=== PATIENT | female | born 1950 | race Two or more races ===

== ENCOUNTER → 2024-09-16 | Outpatient (CLI) | payer MEDICARE, SELFPAY ==
[2024-09-16 10:17] LABS: Basophils # (Auto) 0.1 Thou/mm3 (0.0-0.2); Basophils % (Auto) 1 % (0-2.5); Eosinophils # (Auto) 0.1 Thou/mm3 (0.0-0.5); Eosinophils % (Auto) 1 % (0-10); Hematocrit 42.4 % (36.0-46.0); Hemoglobin 14.1 g/dL (12.0-16.0); Immature Granulocytes % (Auto) 0 % (0-0); Immature Granulocytes Auto 0.03 Thou/mm3 (0.00-0.00); Lymphocytes # (Auto) 2.3 Thou/mm3 (1.0-4.8); Lymphocytes % (Auto) 29 % (10-50); Mean Corpuscular HGB Conc 33.3 g/dl (31.0-37.0); Mean Corpuscular Hemoglobin 30.9 pg (25.0-35.0); Mean Corpuscular Volume 93 fL (80-100); Monocytes # (Auto) 0.5 Thou/mm3 (0.0-0.8); Monocytes % (Auto) 7 % (0-12); Neutrophils # (Auto) 4.9 Thou/mm3 (1.8-7.7); Neutrophils % (Auto) 62 % (37-80); Nucleated Red Blood Cell % 0 /100 WBC (0); Platelet Count 287 Thou/mm3 (140-440); RDW Standard Deviation 43.4 fL (36.4-46.3); Red Blood Count 4.56 Miln/mm3 (4.00-5.20)
[2024-09-16 10:44] LABS: Creatinine MALB Rnd Ur 97 mg/dL (30-125); Microalbumin, Random Urine < 3 mg/L (0-300)
[2024-09-16 10:44] LABS: Alanine Aminotransferase 10 U/L (10-49); Albumin, Serum 4.3 gm/dL (3.4-4.8); Albumin/Globulin Ratio 1.7 (1.2-2.2); Alkaline Phosphatase 99 U/L (46-116); Anion Gap 9 (7-16); Aspartate Amino Transferase 18 U/L (0-34); BUN/Creatinine Ratio 22 Ratio (12-20); Bilirubin,Total 0.4 mg/dL (0.3-1.2); Blood Urea Nitrogen 20 mg/dL (9-23); Carbon Dioxide 27.3 mMol/L (20.0-31.0); Cardiac Risk Estimate 4.1 RATIO (3.7-5.6); Chloride 108 mMol/L (98-107); Cholesterol 162 mg/dL (132-200); Creatinine (Component) 0.9 mg/dL (0.6-1.3); Globulin 2.5 gm/dL (2.3-3.5); Glucose 146 mg/dL (74-106); HDL Cholesterol 40 mg/dL (40-60); LDL Cholesterol,Calculated 88 mg/dL (0-130); Osmolality,Calculated 292 (275-295); Potassium 5.1 mMol/L (3.4-5.1); Sodium 144 mMol/L (136-145); Thyroid Stimulating Hormone 1.85 uIU/mL (0.55-4.78); Total Protein 6.8 gm/dL (5.7-8.2); Triglycerides 172 mg/dL (30-150); eGFR > 60 See Note
[2024-09-16 10:47] LABS: Glucose Estimated Average 131 mg/dL (80-131); Hemoglobin A1C 6.2 % Hgb (4.8-6.0)
== END | disposition home or self-care (01) ==
LOC: COPL 09:13
PROVIDERS: PCP Family Medicine; Referring Provider Family Medicine; Visit Provider Family Medicine
DX: E11.9 Type 2 diabetes mellitus without complications (principal)
CPT/HCPCS: 36415; 80053; 80061; 82043; 82570; 83036; 84443; 85025

== ENCOUNTER 2024-11-23 14:17 | Emergency (ER) | payer MEDICARE, SELFPAY ==
[2024-11-23 14:23] VITALS: PULSE 100; O2SAT 96
--- NOTE | 2024-11-23 14:23 | PC.NURSE ---
Patient to ER via ems with c/o Sudden onsent SOB, costa. eys blurred vision, and Headache. Patient in ambulance bay and Dr. Alexis called to bedside to evaluate patient, patient currently has no deficits, strong costa. 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 Alert and oriented x 4.
[2024-11-23 14:25] VITALS: BP 124/74; PULSE 90; RESP 19; TEMP 36.8; O2SAT 97; BMI 37.8
--- NOTE | 2024-11-23 14:26 | PD.EDHA ---
ED Headache RME/HPI General Chief Complaint: Shortness of Breath/Dyspnea Stated Complaint: SOB Time Seen by Provider: 11/23/24 14:26 Arrival date/time: 11/23/24 14:17 Limitations: no limitations RME / HPI RME / HPI Narrative: DR. RAMACHANDRAN MAIN ED EVALUATION: 73 year old female with past medical history significant for cluster migraines and hypertension presents to the Emergency Department [facility] with complaint of a headache prior to arrival. Associated symptoms include vision changes, I saw shadows instead of faces . Vision changes and headache have resolved. Now she is complaining of mid chest pain and paresthesias of her bilateral hands. Patient is very anxious. Related Data Home Medications ?Medication ?Instructions ?Recorded ?Confirmed losartan 50 mg tablet 50 mg PO QDAY 06/03/21 04/03/24 Previous Rx's ?Medication ?Instructions ?Recorded pantoprazole 40 mg tablet,delayed 40 mg PO QDAY #14 tabs 12/04/23 release (Protonix) aspirin 81 mg capsule 81 mg PO QDAY #30 caps 04/03/24 cyclobenzaprine 5 mg tablet 5 mg PO TID PRN muscle spasm #30 05/10/24 tabs cyclobenzaprine 5 mg tablet 5 mg PO TID PRN muscle spasm #30 05/10/24 tabs Allergies Allergy/AdvReac Type Severity Reaction Status Date / Time adhesive tape Allergy Intermediate RASH Verified 05/10/24 03:12 shellfish derived Allergy Intermediate Hives Verified 05/10/24 03:12 Iodinated Contrast Media Allergy Hives Verified 05/10/24 03:12 (Iodinated Contrast- Oral and IV Dye) codeine AdvReac Mild STOMACH Verified 05/10/24 03:12 UPSET Review of Systems Review of Systems Systems Reviewed: All systems reviewed, normal except as documented Past Medical History Past Medical History NEUROLOGIC: Positive Neurological Disorders and Migraine CARDIAC: Positive Cardiac Disorders, Myocardial Infarction and Hypertension GASTROINTESTINAL: Positive Gastrointestinal Bleed and Irritable Bowel MUSCULOSKELETAL: Positive Arthritis, Osteoporosis, Carpal Tunnel Syndrome and Fibromyalgia ENDOCRINE: Positive Diabetes Mellitus Type 2 PSYCHO/SOCIAL: Positive Depression and Anxiety OTHER HISTORY: Positive Anesthesia Reactions Family History FAMILY HISTORY: Positive Family Cardiac Disorders and Family Cancer Social History SMOKING STATUS: Never smoker SUBSTANCE USE: does not use ALCOHOL: Never ED Exam General Limitations: Present no limitations General appearance: Present alert, in no apparent distress and anxious Head Head exam: Present atraumatic, normocephalic and normal inspection Eye Eye exam: Present normal appearance, PERRL and EOMI ENT ENT exam: Present normal exam, normal oropharynx and mucous membranes moist Neck Neck exam: Present normal inspection, full ROM and trachea midline Chest Chest inspection: Present normal inspection and symmetric chest wall rise Respiratory Respiratory exam: Present normal lung sounds bilaterally Cardiovascular Cardiovascular exam: Present regular rate, normal rhythm and normal heart sounds Abdominal Exam Abdominal exam: Present soft and normal bowel sounds Extremities Exam Extremities exam: Present normal inspection and full ROM Back Exam Back exam: Present normal inspection and full ROM Neurological Exam Neurological exam: Present alert, oriented X3 and CN II-XII intact Psychiatric Psychiatric exam: Present normal affect and normal mood Skin Skin exam: Present warm, dry, intact and normal color Course Quality Measures none Orders Category Date Time Status EKG (ED ONLY) *Do not use* NOW Care 11/23/24 14:32 Completed CXRP [XR chest 1V portable] Stat Exams 11/23/24 15:23 Completed EKG (ED Only) Stat Exams 11/23/24 14:32 Draft B-Type Natriuretic Peptide Stat Lab 11/23/24 14:55 Completed CBC Stat Lab 11/23/24 14:55 Completed Comprehensive Metabolic Panel Stat Lab 11/23/24 14:55 Completed Magnesium Stat Lab 11/23/24 14:55 Completed Partial Thromboplastin Time Stat Lab 11/23/24 14:55 Completed Prothrombin Time with INR Stat Lab 11/23/24 14:55 Completed Troponin I Stat Lab 11/23/24 14:55 Completed Urinalysis Stat Lab 11/23/24 14:32 Ordered Acetaminophen Ivpb [Ofirmev Inj] Med 11/23/24 15:35 Discontinued 1,000 mg in 100 ml IV X1 LORazepam [Ativan Inj] Med 11/23/24 14:33 Discontinued 0.5 mg IVP X1 ONE Ondansetron Inj [Zofran Inj] Med 11/23/24 16:16 Discontinued 4 mg IV X1 ONE Sodium Chloride 0.9% 500 ml [Ns] 500 ml Med 11/23/24 14:35 Discontinued IV 999 mls/hr Reevaluation(s) Reevaluation #1: Patient is having a right-sided headache with right visual changes and photophobia. Will order IV Tylenol. Time: 15:36 Reevaluation #2: Patient remains clinically stable throughout the emergency department visit. Re-assessment at the time of disposition demonstrates that the patient is in no acute distress. We reviewed all the results, analysis, and treatment plans. Patient is amenable to discharge. Strict return precautions were outlined. Patient was discharged in stable condition. Time: 17:20 Vital Signs Vital signs: Vital Signs Temperature 98.2 F 11/23/24 14:25 Pulse Rate 90 11/23/24 14:25 Respiratory Rate 19 11/23/24 14:25 Blood Pressure 124/74 11/23/24 14:25 Pulse Oximetry (%) 97 11/23/24 14:25 Oxygen Delivery Method Room Air 11/23/24 14:25 Headache MDM Narrative MDM Narrative:: IAndria am scribing for and in the presence of Dr. Ramachandran. Patient data External records reviewed:: EMS form Clinical information provided by:: patient and EMS Social determinants that could affect healthcare access:: none Patient has the following chronic illnesses:: Cluster migraines and hypertension How is presenting disease/condition affected by chronic disease/condition?: caused by Evaluation data The following diagnostics were reviewed and interpreted by me:: lab results and EKG tracing(s) Lab and/or radiology exams considered but not ordered:: none Interpretation Summary: EKG#1: EKG at 1445 hours. Interpreted by me: sinus rhythm with frequent supraventricular premature complexes, rate 92, MO interval 175 ms, QRS duration 81 ms, QT/QTc 380/470, P-R-T axis 90, 39, and 19 RADIOLOGY Procedure(s): XR chest 1V portable Accession Number(s): [id number] cc: Mj Ramachandran MD; Jamil Holland MD~ Examination: AP chest single view Technique one AP portable upright chest single view Exam date and time: November 23, 2024 1610 hours Comparison April 01, 2024 INDICATIONS: Chest pain shortness of breath today. FINDINGS: Mild prominence cardiac contour Mild vascular congestion. Accentuation basilar bronchovascular markings. No lobar pneumonia or pulmonary edema IMPRESSION: Mild vascular congestion Mild basilar bronchitis pattern Dictated By: Jamil Holland MD Medications / Prescriptions Medications or Prescriptions considered but not ordered:: none Medication administrations:: Medication Administration History Discontinued Medications Sodium Chloride (Ns) 500 mls @ 999 mls/hr IV .Q31M ONE Stop: 11/23/24 15:05 Last Infusion: 11/23/24 16:20 Dose: Infused Documented By: Admin: 11/23/24 15:15 Dose: 999 mls/hr Documented By: SUSIE Acetaminophen (Ofirmev Inj) 1,000 mg in 100 mls @ 250 mls/hr IV X1 ONE Stop: 11/23/24 15:58 Lorazepam (Lorazepam 2 Mg/Ml Vial) 0.5 mg IVP X1 ONE Stop: 11/23/24 14:34 Last Admin: 11/23/24 15:15 Dose: 0.5 mg Documented By: SUSIE Ondansetron HCl (Ondansetron Inj 2 Mg/Ml Inj 2 Ml) 4 mg IV X1 ONE; Protocol Stop: 11/23/24 16:17 see above Consultations Consultation(s) initiated? (list below): No Diagnosis Differential diagnosis headache: migraine, tension headache and headache Most likely diagnosis given after review of the tests above:: Mild vascular congestion Bronchitis Hyperglycemia Hypertension fully controlled Admission Indicated Admission indicated?: not indicated Admission Request Was there a request for admission?: No Disposition Plan Disposition Plan: Discharge Discharge Attestation Discharge Attestation: The patient and all family members were given an opportunity to ask questions and understood the discharge instructions. Discharge instructions specifically effects, indications for sooner follow up or return to the emergency department, and the expected course of current diagnosis. Patient condition: Stable Discharge Plan Plan Patient Disposition: HOME (Self Care) Patient condition on transfer: Stable Prescriptions/Referrals Prescriptions/Med Rec: No Action losartan 50 mg Tablet 50 mg PO QDAY Rx Instructions: losartan with potassium pantoprazole [Protonix] 40 mg tablet,delayed release (DR/EC) 40 mg PO QDAY Qty: 14 0RF aspirin 81 mg capsule 81 mg PO QDAY Qty: 30 0RF cyclobenzaprine 5 mg tablet 5 mg PO TID PRN (Reason: muscle spasm) Qty: 30 0RF cyclobenzaprine 5 mg tablet 5 mg PO TID PRN (Reason: muscle spasm) Qty: 30 0RF Referrals: No Primary/Family,Physician [Primary Care Provider] - In 1 week Problem List Clinical Impression: Pulmonary vascular congestion, Hypertension, Bronchitis, Hyperglycemia Patient/Caregiver Discharge Instructions Additional Instructions: Please follow-up with your primary care physician within a week. Return to the Emergency Department as needed. Print Language: Citizen Of [place] Stand Alone Forms: Stephanie Award Info., Patient Portal Info Letter
--- NOTE | 2024-11-23 14:32 | EKG_ITS ---
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
[2024-11-23] MEDS: SODIUM CHLORIDE 0.9% 500 ML 500 ML 999 ML IV (15:15)
[2024-11-23] MEDS: LORazepam 2 MG/ML VIAL 0.5 MG IVP (15:15)
[2024-11-23 15:20] LABS: Basophils # (Auto) 0.1 Thou/mm3 (0.0-0.2); Basophils % (Auto) 1 % (0-2.5); Eosinophils # (Auto) 0.1 Thou/mm3 (0.0-0.5); Eosinophils % (Auto) 1 % (0-10); Hematocrit 40.2 % (36.0-46.0); Hemoglobin 13.3 g/dL (12.0-16.0); Immature Granulocytes % (Auto) 0 % (0-0); Immature Granulocytes Auto 0.04 Thou/mm3 (0.00-0.00); Lymphocytes # (Auto) 2.1 Thou/mm3 (1.0-4.8); Lymphocytes % (Auto) 21 % (10-50); Mean Corpuscular HGB Conc 33.1 g/dl (31.0-37.0); Mean Corpuscular Hemoglobin 30.4 pg (25.0-35.0); Mean Corpuscular Volume 92 fL (80-100); Monocytes # (Auto) 0.5 Thou/mm3 (0.0-0.8); Monocytes % (Auto) 5 % (0-12); Neutrophils # (Auto) 6.9 Thou/mm3 (1.8-7.7); Neutrophils % (Auto) 71 % (37-80); Nucleated Red Blood Cell % 0 /100 WBC (0); Platelet Count 272 Thou/mm3 (140-440); RDW Standard Deviation 44.4 fL (36.4-46.3); Red Blood Count 4.37 Miln/mm3 (4.00-5.20); White Blood Count 9.7 Thou/mm3 (3.6-11.0)
--- NOTE | 2024-11-23 15:23 | XR_ITS ---
Examination: AP chest single view Technique one AP portable upright chest single view Exam date and time: November 23, 2024 1610 hours Comparison April 01, 2024 INDICATIONS: Chest pain shortness of breath today. FINDINGS: Mild prominence cardiac contour Mild vascular congestion. Accentuation basilar bronchovascular markings. No lobar pneumonia or pulmonary edema IMPRESSION: Mild vascular congestion Mild basilar bronchitis pattern
[2024-11-23 15:36] LABS: B-Type Natriuretic Peptide 37 pg/mL (0-100)
[2024-11-23 15:37] LABS: Partial Thromboplastin Time 25.1 Seconds (22.0-36.0); Prothrombin Time 10.9 Seconds (9.0-12.2)
[2024-11-23 15:40] LABS: Alanine Aminotransferase 11 U/L (10-49); Albumin, Serum 4.1 gm/dL (3.4-4.8); Albumin/Globulin Ratio 1.4 (1.2-2.2); Alkaline Phosphatase 104 U/L (46-116); Anion Gap 7 (7-16); Aspartate Amino Transferase 15 U/L (0-34); BUN/Creatinine Ratio 23 Ratio (12-20); Bilirubin,Total 0.4 mg/dL (0.3-1.2); Blood Urea Nitrogen 23 mg/dL (9-23); Calcium 8.9 mg/dL (8.3-10.6); Calcium (Corrected) 8.9 mg/dL (8.5-10.1); Carbon Dioxide 24.9 mMol/L (20.0-31.0); Chloride 109 mMol/L (98-107); Estimated Creatinine Clearance 51.4 mL/min (>60); Globulin 2.9 gm/dL (2.3-3.5); Glucose 261 mg/dL (74-106); Magnesium 1.6 mg/dL (1.6-2.6); Osmolality,Calculated 293 (275-295); Potassium 3.4 mMol/L (3.4-5.1); Sodium 141 mMol/L (136-145); Troponin I < 0.020 ng/mL (0.0-0.045); eGFR 59 See Note
[2024-11-23 17:14] VITALS: BP 148/77; PULSE 85; RESP 22; TEMP 37.1; O2SAT 95
[2024-11-23] MEDS: ONDANSETRON INJ 2 MG/ML INJ 2 ML 4 MG IV (17:23)
[2024-11-23] MEDS: ACETAMINOPHEN IVPB 1,000 MG/100 ML VIAL 250 MG IV (17:24)
[2024-11-23 17:30] VITALS: BP 129/75; PULSE 84; RESP 18; TEMP 36.9; O2SAT 95
== END 2024-11-23 18:15 | disposition home or self-care (01) ==
PROVIDERS: Emergency Provider Family Medicine
DX: J40 Bronchitis, not specified as acute or chronic (principal); R09.89 Other specified symptoms and signs involving the circulatory and respiratory systems; I10 Essential (primary) hypertension; E11.65 Type 2 diabetes mellitus with hyperglycemia; I49.1 Atrial premature depolarization
CPT/HCPCS: 36415; 71045; 80053; 81001; 83735; 83880; 84484; 85025; 85610; 85730; 93005; 96361; 96365; 96375; 99284; J0131; J2060; J2405; J7040

== ENCOUNTER 2025-01-29 18:13 | Emergency (ER) | payer MEDICARE, SELFPAY ==
[2025-01-29 18:23] VITALS: BP 139/102; PULSE 126; RESP 18; TEMP 36.7; O2SAT 98
[2025-01-29 18:26] VITALS: PULSE 165; RESP 20; O2SAT 96; BMI 40.0
--- NOTE | 2025-01-29 18:34 | EDNOTE_ITS ---
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 Patient describes pain as a tightness. She also reports numbness, pins and needles to her LUE. Patient was in the shower when symptoms began. She stepped out and tried to calm down, but received a phone call from a teacher learning disabled causing her to become upset and exacerbated her symptoms again. She takes Eliquis, Metformin, Aspirin, and a blood pressure medication. Patient also reports approximately 6 months ago she was told she had a stroke, but after evaluation by a neurologist, she was asked to stop her medications and told that she never had a stroke. Patient denies nausea, vomiting, diarrhea or any other associated symptoms or aggravating factors. No modifying factors, no radiation, no migration. No pain reported overall. Related Data Home Medications ?Medication ?Instructions ?Recorded ?Confirmed apixaban 5 mg tablet (Eliquis) 5 mg PO BID 01/29/25 metformin 1,000 mg tablet 100 mg PO BID 01/29/2501/29 Previous Rx's ?Medication ?Instructions ?Recorded aspirin 81 mg capsule 81 mg PO QDAY #30 caps 04/03 Allergies Allergy/AdvReac Type Severity Reaction Status Date / Time adhesive tape Allergy Intermediate RASH Verified 05/10/24 03:12 shellfish derived Allergy Intermediate Hives Verified 05/10/24 03:12 Iodinated Contrast Media Allergy Hives Verified 05/10/24 03:12 (Iodinated Contrast- Oral and IV Dye) codeine AdvReac Mild STOMACH Verified 05/10/24 03:12 UPSET Review of Systems Review of Systems Systems Reviewed: All systems reviewed, normal except as documented Past Medical History Past Medical History NEUROLOGIC: Positive Neurological Disorders and Migraine CARDIAC: Positive Cardiac Disorders, Myocardial Infarction, Atrial Fibrillation and Hypertension GASTROINTESTINAL: Positive Gastrointestinal Bleed and Irritable Bowel MUSCULOSKELETAL: Positive Arthritis, Osteoporosis, Carpal Tunnel Syndrome and Fibromyalgia ENDOCRINE: Positive Diabetes Mellitus Type 2 PSYCHO/SOCIAL: Positive Depression and Anxiety OTHER HISTORY: Positive Anesthesia Reactions Family History FAMILY HISTORY: Positive Family Cardiac Disorders and Family Cancer ED Exam Narrative Physical exam: GENERAL APPEARANCE: alert and oriented x 4, well-developed, well-nourished, no acute distress VITALS: All vitals were reviewed and the pulse ox is 98% on room air, which is normal according to my interpretation. HEENT: Normocephalic, atraumatic; pupils equal, round, reactive to light; EOMI; mucous membranes pink, moist; oropharynx clear NECK: Supple LUNGS: CTABL; no wheezes, no rales, no rhonchi HEART: Regular rate, regular rhythm; normal S1, S2; no murmurs ABDOMEN: non distended; normal BS; soft, no tenderness, no guarding, no rebound; no masses, no organomegaly, no hernia BACK: no CVA tenderness EXTREMITIES: atraumatic; no edema NEUROLOGIC: awake; alert and oriented x4; cranial nerves II-XII grossly intact; no focal sensory or motor deficits PSYCHIATRIC: appropriate mood and affect SKIN: warm, dry, normal color; no rashes Course Course Course Narrative: CXR is ordered for determining the etiology of shortness of breath. Quality Measures none Orders Category Date Time Status Sr. Vendor Management Associate NOW Care 01/29/25 18:34 Active EKG (ED ONLY) *Do not use* NOW Care 01/29/25 18:34 Completed EKG (ED Only) Stat Exams 01/29/25 18:34 Draft XR chest 1V portable Stat Exams 01/29/25 18:34 Completed B-Type Natriuretic Peptide Stat Lab 01/29/25 18:36 Completed CBC Stat Lab 01/29/25 18:36 Completed Comprehensive Metabolic Panel Stat Lab 01/29/25 18:36 Completed Lipase Stat Lab 01/29/25 18:36 Completed Magnesium Stat Lab 01/29/25 18:36 Completed Partial Thromboplastin Time Stat Lab 01/29/25 18:36 Completed Prothrombin Time with INR Stat Lab 01/29/25 18:36 Completed Troponin I Stat Lab 01/29/25 18:36 Completed Troponin I Stat Lab 01/29/25 21:40 Completed Aspirin Chew Med 01/29/25 18:33 Discontinued 162 mg PO X1 ONE Labetalol IV [Trandate IV] Med 01/29/25 18:39 Discontinued 10 mg IVP X1 ONE Magnesium Sulfate 2 GM Ivpb [Magnesium Sulfate Ivpb] Med 01/29/25 20:45 Discontinued 2 gm in 50 ml IV X1 Vital Signs Vital signs: Vital Signs Temperature 98.1 F 01/29/25 18:23 Pulse Rate 126 H 01/29/25 18:23 Respiratory Rate 18 01/29/25 18:23 Blood Pressure 139/102 H 01/29/25 18:23 Pulse Oximetry (%) 98 01/29/25 18:23 Oxygen Delivery Method Room Air 01/29/25 18:23 Chest Pain MDM Narrative MDM Narrative:: Scribe Attestation: I, Dannielle Zamudio, am scribing for and in the presence of Dr. Sapp. Provider Notation: Although this document has been carefully reviewed, there may still be some phonetic and other typographical errors.? These errors are purely grammatical due to imperfections in the software program and should not be construed in any way to? compromise the substance of the patient's medical care during this visit. Patient data External records reviewed:: [facility] previous records (Reviewed prior ED records from 11/23/24. Patient was seen for Bronchitis.) and EMS form Clinical information provided by:: patient and EMS Social determinants that could affect healthcare access:: none Patient has the following chronic illnesses:: Migraine, Myocardial Infarction, Atrial Fibrillation, Hypertension, Gastrointestinal Bleed, Irritable Bowel, Arthritis, Osteoporosis, Carpal Tunnel Syndrome, Fibromyalgia, Diabetes Mellitus Type 2, Depression and Anxiety How is presenting disease/condition affected by chronic disease/condition?: exacerbated by Evaluation data The following diagnostics were reviewed and interpreted by me:: lab results, radiology exam(s) and EKG tracing(s) (1936: EKG manual reading, my interpretation: Atrial Fibrillation, rate: 103 bpm, moderate artifact, no acute ischemic changes.) Lab and/or radiology exams considered but not ordered:: None Interpretation Summary: RADIOLOGY Chest X-Ray: Patient: PETAR SAAVEDRA [facility]. Record#: [id number] Birthdate: 1950 Age/Sex: 74 / F Location: [facility] Attending Dr: Ordering Physician: Jemma Sapp MD Date of Service: 01/29/25 Procedure(s): XR chest 1V portable Accession Number(s): [id number] cc: Jamil Holland MD; NO PRIMARY/FAMILY,PHYSICIAN; Jemma Sapp MD~ Examination: AP chest single view Technique: AP portable semiupright chest single view Date and time: January 29, 2025 1902 hours Comparison November 23, 2024 INDICATIONS: Chest pain shortness of breath beginning 2 days ago. FINDINGS: Mild prominence cardiac contour Opacity obscuring detail of the right cardiac contour No pulmonary edema. Significant osteopenia IMPRESSION: Suspicious for pneumonia in the right middle lobe Dictated By: Jamil Holland MD Signed By: <Electronically signed by Jamil Holland MD in OV> 01/29/25 1920 Medications / Prescriptions Medications or Prescriptions considered but not ordered:: None Medication administrations:: Medication Administration History Discontinued Medications Aspirin (Aspirin 81 Mg Chew) 162 mg PO X1 ONE Stop: 01/29/25 18:34 Last Admin: 01/29/25 20:01 Dose: 162 mg Documented By: EE Magnesium Sulfate (Magnesium Sulfate Ivpb) 2 gm in 50 mls @ 25 mls/hr IV X1 ONE Stop: 01/29/25 22:44 Last Admin: 01/29/25 21:11 Dose: 25 mls/hr Documented By: EE Labetalol HCl (Labetalol Inj 5 Mg/Ml Vial 20 Ml) 10 mg IVP X1 ONE Stop: 01/29/25 18:40 Last Admin: 01/29/25 19:55 Dose: Not Given Documented By: EE Non-Admin Reason: Cancelled by Provider See above Consultations Consultation(s) initiated? (list below): No Diagnosis Chest Pain Differential Diagnosis: stable angina, unstable angina pectoris, atypical chest pain, st elevation myocardial infarction, costochondritis, chest pain and biliary colic Most likely diagnosis given after review of the tests above:: Atrial fibrillation, chest pain, dyspnea Admission Indicated Admission indicated?: not indicated Explain why admission is indicated or not indicated:: Patient did not meet admission criteria. Admission Request Was there a request for admission?: No Disposition Plan Disposition Plan: Discharge Discharge Attestation Discharge Attestation: The patient and all family members were given an opportunity to ask questions and understood the discharge instructions. Discharge instructions specifically effects, indications for sooner follow up or return to the emergency department, and the expected course of current diagnosis. Patient condition: Stable Discharge Plan Plan Patient Disposition: HOME (Self Care) Prescriptions/Referrals Prescriptions/Med Rec: No Action aspirin 81 mg capsule 81 mg PO QDAY Qty: 30 0RF Eliquis 5 mg tablet 5 mg PO BID metformin 1,000 mg tablet 100 mg PO BID Patient Comments: TAKE 1 TABLET BY MOUTH TWICE A DAY WITH MORNING AND EVENING MEALS Referrals: No Primary/Family,Physician [Primary Care Provider] - In 1 week Problem List Clinical Impression: Atrial fibrillation, Dyspnea, Chest tightness Patient/Caregiver Discharge Instructions Education Materials: ED Atrial Fibrillation, ED Chest Pain, Uncertain Cause Print Language: Czech Stand Alone Forms: Stephanie Award Info., Patient Portal Info Letter
--- NOTE | 2025-01-29 18:34 | EKG_ITS ---
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
--- NOTE | 2025-01-29 18:35 | PC.NURSE ---
PATIENT ARRIVED EMS SECONDARY TO INCREASE IN SOB AND CHEST PAIN, PATIENT STATES SHE WAS TAKING A SHOWER EARLIER AND FELT SOB AND GOT OUT OF THE SHOWER AND RESTED WITH RELIEF. PATIENT STATES SHE GOT UPSET WITH SOME FAMILY ISSUES AND HAD CHEST PAIN WITH SOB AND STATES SHE FELT HER HEART RACING. UPON ARRIVAL PATIENT WITH CHEST PAIN 2/10 ON PAIN SCALE, STATES THAT SHE NOW HAS A HEADACHE 7/10. PATIENT ABLE TO ANSWER APPROPRIATE QUESTIONS AND STATES SHE FEELS BETTER ONCE PLACED IN ROOM. PATIENT ON MONITOR, BLOOD DRAWN FROM EXISTING IV AND SENT TO LAB. DR. MADRID AT BEDSIDE. CALL LIGHT AND PLAN OF CARE UNDERSTOOD BY PATIENT.
[2025-01-29 18:47] VITALS: PULSE 126
[2025-01-29 18:48] LABS: Basophils # (Auto) 0.1 Thou/mm3 (0.0-0.2); Basophils % (Auto) 1 % (0-2.5); Eosinophils # (Auto) 0.1 Thou/mm3 (0.0-0.5); Eosinophils % (Auto) 1 % (0-10); Hematocrit 43.1 % (36.0-46.0); Hemoglobin 14.6 g/dL (12.0-16.0); Immature Granulocytes % (Auto) 0 % (0-0); Immature Granulocytes Auto 0.03 Thou/mm3 (0.00-0.00); Lymphocytes # (Auto) 2.5 Thou/mm3 (1.0-4.8); Lymphocytes % (Auto) 25 % (10-50); Mean Corpuscular HGB Conc 33.9 g/dl (31.0-37.0); Mean Corpuscular Hemoglobin 30.9 pg (25.0-35.0); Mean Corpuscular Volume 91 fL (80-100); Monocytes # (Auto) 0.7 Thou/mm3 (0.0-0.8); Monocytes % (Auto) 7 % (0-12); Neutrophils # (Auto) 6.6 Thou/mm3 (1.8-7.7); Neutrophils % (Auto) 67 % (37-80); Nucleated Red Blood Cell % 0 /100 WBC (0); Platelet Count 264 Thou/mm3 (140-440); RDW Standard Deviation 43.5 fL (36.4-46.3); Red Blood Count 4.72 Miln/mm3 (4.00-5.20)
[2025-01-29 19:02] LABS: Partial Thromboplastin Time 27.4 Seconds (22.0-36.0)
[2025-01-29 19:07] LABS: Alanine Aminotransferase 14 U/L (10-49); Albumin, Serum 4.4 gm/dL (3.4-4.8); Albumin/Globulin Ratio 1.6 (1.2-2.2); Alkaline Phosphatase 105 U/L (46-116); Anion Gap 8 (7-16); Aspartate Amino Transferase 15 U/L (0-34); BUN/Creatinine Ratio 15 Ratio (12-20); Bilirubin,Total 0.3 mg/dL (0.3-1.2); Blood Urea Nitrogen 20 mg/dL (9-23); Calcium 9.2 mg/dL (8.3-10.6); Calcium (Corrected) 9.2 mg/dL (8.5-10.1); Carbon Dioxide 23.2 mMol/L (20.0-31.0); Chloride 112 mMol/L (98-107); Creatinine (Component) 1.3 mg/dL (0.6-1.3); Estimated Creatinine Clearance 40.2 mL/min (>60); Globulin 2.7 gm/dL (2.3-3.5); Glucose 110 mg/dL (74-106); Lipase 37 U/L (12-53); Magnesium 1.5 mg/dL (1.6-2.6); Osmolality,Calculated 288 (275-295); Sodium 143 mMol/L (136-145); Total Protein 7.1 gm/dL (5.7-8.2); Troponin I < 0.020 ng/mL (0.0-0.045); eGFR 43 See Note
[2025-01-29 19:08] LABS: B-Type Natriuretic Peptide 178 pg/mL (0-100)
[2025-01-29 19:54] VITALS: BP 132/90; PULSE 103; RESP 18; O2SAT 97
[2025-01-29] MEDS: ASPIRIN 81 MG CHEW 162 MG PO (20:01)
[2025-01-29 21:08] VITALS: BP 118/81; PULSE 95; RESP 18; TEMP 36.9; O2SAT 97
[2025-01-29] MEDS: Magnesium Sulfate 2 GM Ivpb 2 GM/50 ML BAG IV (21:11)
[2025-01-29 22:13] LABS: Troponin I < 0.020 ng/mL (0.0-0.045)
[2025-01-30 00:24] VITALS: BP 116/76; PULSE 72; RESP 16; TEMP 36.8; O2SAT 95
== END 2025-01-30 00:26 | disposition home or self-care (01) ==
PROVIDERS: Emergency Provider Emergency Medicine
DX: I48.91 Unspecified atrial fibrillation (principal); R94.31 Abnormal electrocardiogram [ECG] [EKG]; I25.2 Old myocardial infarction; I10 Essential (primary) hypertension; F41.9 Anxiety disorder, unspecified; R20.0 Anesthesia of skin
CPT/HCPCS: 36415; 71045; 80053; 83690; 83735; 83880; 84484; 85025; 85610; 85730; 93005; 96365; 96366; 99284; J3475; A9270

== ENCOUNTER 2025-04-13 15:49 | Observation (INO) | payer MEDICARE, SELFPAY ==
--- NOTE | 2025-04-13 16:18 | EKG_ITS ---
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
[2025-04-13 16:23] VITALS: BP 125/90; PULSE 93; RESP 18; TEMP 36.6; O2SAT 96
--- NOTE | 2025-04-13 16:37 | XR_ITS ---
Examination: AP chest single view Technique: Upright AP chest single view Date and time: April 13, 2025, 1721 hrs. Indications: Shortness of breath headache beginning 3 weeks ago. Findings: Mild enlargement cardiac contour. Probable fat pad left cardiophrenic angles No lobar pneumonia or pulmonary edema Impression: No lobar pneumonia or pulmonary edema.
--- NOTE | 2025-04-13 16:37 | XR_ITS ---
Examination: CT brain head without contrast. 2-D sagittal coronal reconstructions Date and time of exam:April 13, 2025 at 1705 hrs. Indications: Headache dizziness beginning 3 weeks ago. CTDI: vol (mGy):54.5. DLP: (mGycm):1 Technique: Multiple CT axial sections of the brain have been obtained, 5 mm slice thickness. Contrast has not been administered. 2-D sagittal, coronal reconstructions have been obtained Low dose protocols were performed. One or more of the following dose reduction techniques were used; automated exposure control, adjustment of the mA and/or KV according to patient size, use of iterative reconstruction technique. Findings: No significant ventricular enlargement. Low density in the right occipital lobe which appears to be old but clinical correlation Intra-axial or extra-axial hemorrhage density is not seen. No mass effect or midline shift Basal cisterns are not remarkable. Fourth ventricle is midline. Cranial vault intact. Impression: Negative for acute hemorrhage, mass effect or midline shift advised Low density in the right occipital lobe which appears to be old but clinical correlation advised Brain MRI MRA without contrast follow-up would best assess for and exclude acute infarction
--- NOTE | 2025-04-13 16:37 | PD.EDRME ---
Rapid Medical Screening Exam RME Arrival date/time: 04/13/25 15:49 74-year-old female presents to the emergency department today for concerns for chest pressure and headache and dizziness Chief Complaint: Shortness of Breath/Dyspnea Time Seen by Provider: 04/13/25 16:00 Vital signs: Vital Signs Temperature 98 F 04/13/25 16:23 Pulse Rate 93 04/13/25 16:23 Respiratory Rate 18 04/13/25 16:23 Blood Pressure 125/90 H 04/13/25 16:23 Pulse Oximetry (%) 96 04/13/25 16:23 Oxygen Delivery Method Room Air 04/13/25 16:23
[2025-04-13 17:26] LABS: Basophils # (Auto) 0.1 Thou/mm3 (0.0-0.2); Basophils % (Auto) 1 % (0-2.5); Eosinophils # (Auto) 0.1 Thou/mm3 (0.0-0.5); Eosinophils % (Auto) 1 % (0-10); Hematocrit 44.2 % (36.0-46.0); Hemoglobin 14.3 g/dL (12.0-16.0); Immature Granulocytes Auto 0.03 Thou/mm3 (0.00-0.00); Lymphocytes # (Auto) 2.3 Thou/mm3 (1.0-4.8); Lymphocytes % (Auto) 25 % (10-50); Mean Corpuscular HGB Conc 32.4 g/dl (31.0-37.0); Mean Corpuscular Hemoglobin 30.0 pg (25.0-35.0); Mean Corpuscular Volume 93 fL (80-100); Monocytes # (Auto) 0.5 Thou/mm3 (0.0-0.8); Monocytes % (Auto) 6 % (0-12); Neutrophils # (Auto) 6.2 Thou/mm3 (1.8-7.7); Neutrophils % (Auto) 68 % (37-80); Nucleated Red Blood Cell # 0.00 Thou/mm3 (0.00-0.00); Nucleated Red Blood Cell % 0 /100 WBC (0); Platelet Count 252 Thou/mm3 (140-440); RDW Standard Deviation 42.9 fL (36.4-46.3); Red Blood Count 4.77 Miln/mm3 (4.00-5.20); White Blood Count 9.1 Thou/mm3 (3.6-11.0)
[2025-04-13 17:59] LABS: B-Type Natriuretic Peptide 135 pg/mL (0-100)
[2025-04-13 18:02] LABS: Alanine Aminotransferase 17 U/L (10-49); Albumin, Serum 4.2 gm/dL (3.4-4.8); Albumin/Globulin Ratio 1.6 (1.2-2.2); Alkaline Phosphatase 88 U/L (46-116); Anion Gap 9 (7-16); Aspartate Amino Transferase 21 U/L (0-34); BUN/Creatinine Ratio 14 Ratio (12-20); Bilirubin,Total 0.4 mg/dL (0.3-1.2); Blood Urea Nitrogen 13 mg/dL (9-23); Calcium 9.8 mg/dL (8.3-10.6); Calcium (Corrected) 9.8 mg/dL (8.5-10.1); Carbon Dioxide 26.1 mMol/L (20.0-31.0); Chloride 107 mMol/L (98-107); Creatinine (Component) 0.9 mg/dL (0.6-1.3); Free T4 (Free Thyroxine) 1.27 ng/dL (0.89-1.76); Globulin 2.6 gm/dL (2.3-3.5); Glucose 113 mg/dL (74-106); Magnesium 2.1 mg/dL (1.6-2.6); Osmolality,Calculated 284 (275-295); Potassium 4.4 mMol/L (3.4-5.1); Sodium 142 mMol/L (136-145); Thyroid Stimulating Hormone 1.04 uIU/mL (0.55-4.78); Total Protein 6.8 gm/dL (5.7-8.2); Troponin I < 0.002 ng/mL (0.0-0.045); eGFR > 60 See Note
[2025-04-13 18:23] LABS: INR 1.1 (0.9-1.3); Partial Thromboplastin Time 27.3 Seconds (22.0-36.0); Prothrombin Time 11.6 Seconds (9.0-12.2)
--- NOTE | 2025-04-13 19:01 | EDNOTE_ITS ---
ED SOB =RME/HPI General Chief Complaint: Shortness of Breath/Dyspnea Stated Complaint: DIFF BREATHING, MAHMOOD, R) ARM NUMB, BACK PAIN, DIZZY Time Seen by Provider: 04/13/25 16:00 Arrival date/time: 04/13/25 15:49 RME / HPI RME / HPI Narrative: 04/13/25 15:49 74-year-old female presents to the emergency department today for concerns for chest pressure and headache and dizziness --------- See MDM for Dr. Castaneda's HPI documentation. Related Data Home Medications ?Medication ?Instructions ?Recorded ?Confirmed apixaban 5 mg tablet (Eliquis) 5 mg PO BID 01/29/25 metformin 1,000 mg tablet 100 mg PO BID 01/29/2501/29 Previous Rx's ?Medication ?Instructions ?Recorded aspirin 81 mg capsule 81 mg PO QDAY #30 caps 04/03 Allergies Allergy/AdvReac Type Severity Reaction Status Date / Time adhesive tape Allergy Intermediate RASH Verified 04/13/25 15:54 shellfish derived Allergy Intermediate Hives Verified 04/13/25 15:54 Iodinated Contrast Media Allergy Hives Verified 04/13/25 15:54 (Iodinated Contrast- Oral and IV Dye) codeine AdvReac Mild STOMACH Verified 04/13/25 15:54 UPSET Review of Systems Review of Systems Systems Reviewed: All systems reviewed, normal except as documented Past Medical History Past Medical History NEUROLOGIC: Positive Neurological Disorders and Migraine; Negative Seizures CARDIAC: Positive Cardiac Disorders, Myocardial Infarction, Atrial Fibrillation and Hypertension; Negative Congestive Heart Failure RESPIRATORY: Negative Chronic Obstructive Pulmonary Disease (COPD) or Asthma GASTROINTESTINAL: Positive Gastrointestinal Bleed and Irritable Bowel; Negative Colorectal Cancer GENITOURINARY: Negative Genitourinary Disorders or Renal Disease REPRODUCTIVE: Negative Breast Cancer MUSCULOSKELETAL: Positive Arthritis, Osteoporosis, Carpal Tunnel Syndrome and Fibromyalgia ENDOCRINE: Positive Diabetes Mellitus Type 2; Negative Diabetes Mellitus Type 1 HEMATOLOGIC: Negative Blood Disorders or Sickle Cell Disease PSYCHO/SOCIAL: Positive Depression and Anxiety OTHER HISTORY: Positive Anesthesia Reactions; Negative Blood Transfusions, Blood Transfusion Reaction, Cancer, Breast Cancer, Cervical Cancer, Colorectal Cancer, Lung Cancer or Ovarian Cancer Family History FAMILY HISTORY: Positive Family Cardiac Disorders and Family Cancer Social History SMOKING STATUS: Never smoker SUBSTANCE USE: does not use ED Exam Narrative Physical exam: See MDM for Dr. Castaneda's physical exam documentation. Course Course Course Narrative: CXR is ordered for determining the etiology of shortness of breath. Quality Measures none Orders Category Date Time Status Bedside Blood Glucose ACHS Care 04/13/25 20:57 Active Bedside COVID-19 Antigen Test NOW Care 04/13/25 19:36 Active Bedside Influenza A&B Antigen Test NOW Care 04/13/25 19:36 Active COVID-19 Screening Questionnaire NOW Care 04/13/25 20:09 Active Devops Consultant NOW Care 04/13/25 16:34 Active Decision to Admit X1 Care 04/13/25 20:09 Active EKG (ED ONLY) *Do not use* NOW Care 04/13/25 16:18 Completed Saline [Insert IV] NOW Care 04/13/25 20:10 Active Consult to Cardiology Stat Cons 04/13/25 20:06 Ordered CA echo transesophageal Stat Exams 04/13/25 20:[address] head/brain wo con Stat Exams 04/13/25 16:37 Completed EKG (ED Only) Stat Exams 04/13/25 16:18 Draft XR chest 1V portable Stat Exams 04/13/25 16:37 Completed B-Type Natriuretic Peptide Stat Lab 04/13/25 17:01 Completed CBC Stat Lab 04/13/25 17:01 Completed Comprehensive Metabolic Panel Stat Lab 04/13/25 17:01 Completed D-Dimer Stat Lab 04/13/25 17:01 Completed Free T4 (Free Thyroxine) Stat Lab 04/13/25 17:01 Completed Magnesium Stat Lab 04/13/25 17:01 Completed Partial Thromboplastin Time Stat Lab 04/13/25 17:01 Completed Prothrombin Time with INR Stat Lab 04/13/25 17:01 Completed TSH [Thyroid Stimulating Hormone] Stat Lab 04/13/25 17:01 Completed Troponin I Stat Lab 04/13/25 17:01 Completed Urinalysis, C/S if Indicated Stat Lab 04/13/25 19:23 Completed Urine Culture Stat Lab 04/13/25 19:23 Received ALPRazoLAM [Xanax] Med 04/13/25 19:36 Discontinued 0.5 mg PO X1 ONE Apixaban [Eliquis] Med 04/14/25 09:00 Active 5 mg PO BID Apixaban [Eliquis] Med 04/13/25 20:55 Discontinued 5 mg PO X1 ONE Aspirin Chew Med 04/14/25 09:00 Active 81 mg PO QDAY Dextrose 50% Syr [D50w Syringe Abboject] Med 04/13/25 20:57 Active 25 ml IV Q15MIN PRN Dextrose 50% Syr [D50w Syringe Abboject] Med 04/13/25 20:57 Active 50 ml IV Q15MIN PRN Glucagon Inj Med 04/13/25 20:57 Active 1 mg IM Q15MIN PRN INSULIN LISPRO (AdmeLOG) [HumaLOG] Med 04/13/25 21:00 Active See Protocol SC ACHS Lidocaine 5% Patch Med 04/13/25 20:58 Active 1 patch TOP UD PRN Metoprolol Succinate Xl [Toprol Xl] Med 04/14/25 09:00 Active 100 mg PO QAM Metoprolol Succinate Xl [Toprol Xl] Med 04/13/25 21:00 Active 50 mg PO HS Sodium Chloride 0.9% 250 ml [Ns] 250 ml Med 04/13/25 20:10 Discontinued IV 500 mls/hr cefTRIAXone/D5w 1gm IV premix [Rocephin/D5w 1gm IV Med 04/13/25 21:00 Active premix] 1 gm in 50 ml IV QDAY cefTRIAXone/D5w 1gm IV premix [Rocephin/D5w 1gm IV Med 04/13/25 20:10 Discontinued premix] 1 gm in 50 ml IV X1 EKG (RT) Routine RT 04/14/25 07:00 Ordered Vital Signs Vital signs: Vital Signs Temperature 98 F 04/13/25 16:23 Pulse Rate 93 04/13/25 16:23 Respiratory Rate 18 04/13/25 16:23 Blood Pressure 125/90 H 04/13/25 16:23 Pulse Oximetry (%) 96 04/13/25 16:23 Oxygen Delivery Method Room Air 04/13/25 16:23 Shortness of Breath / Dyspnea MDM Narrative MDM Narrative:: This section includes all my notes and documentations, including HPI, PE, and ED course. Madi Castaneda MD HPI: 74yo female here with recurrent episodes of palpitation and shortness of breath for months. No syncope or near syncope. No chest pain. No other complaints. ROS: All negative except as documented in HPI. Physical Exam: General: Alert and oriented. Appears anxious. Eyes: Conjunctivae and lids clear. PERRL. EOMI. ENT: No nasal congestion. Neck: Supple. No carotid bruit. No JVD. Heart: Irregularly irregular (84 bpm). Lungs: No respiratory distress. Good air movement. No severe rhonchi, wheezing, rales. Abdomen: Soft and nontender. Back: No CVA tenderness. Skin: Warm and dry. Neuro: Alert and oriented X 3. Cranial nerves II to XII grossly normal. No peripheral motor deficits. I reviewed all diagnostic test results. My interpretation of the EKG is atrial fibrillation (84 bpm). My interpretation of the chest x-ray is NAD. My review of the CT head report is NAD. Blood tests are unremarkable. UA showed positive nitrite, positive leukocyte esterase, 26 WBC, and 4+ b acteria. At this point, diagnoses include: Atrial fibrillation with RVR UTI (urinary tract infection) Treatment here included: IV fluid Rocephin Patient declined Xanax. I discussed the case with patient's global category manager, Dr. King About the presentation and exam and diagnostics and treatments here. Recommended admission for cardioversion. I discussed the case with our hospitalist. About the presentation and exam and diagnostics and treatments here. And need of further care in the hospital. Will accept the patient. Madi Castaneda MD Patient data External records reviewed:: [facility] previous records (Per chart review, patient was seen here on 01/29/25 for aFib.) Clinical information provided by:: guardian Social determinants that could affect healthcare access:: none Patient has the following chronic illnesses:: aFib, HTN, DM How is presenting disease/condition affected by chronic disease/condition?: uneffected by Evaluation data The following diagnostics were reviewed and interpreted by me:: lab results, radiology exam(s) and EKG tracing(s) Lab and/or radiology exams considered but not ordered:: none Interpretation Summary: I reviewed all diagnostic test results. My interpretation of the EKG is atrial fibrillation (84 bpm). My interpretation of the chest x-ray is NAD. My review of the CT head report is NAD. Blood tests are unremarkable. UA showed positive nitrite, positive leukocyte esterase, 26 WBC, and 4+ bacteria. Medications / Prescriptions Medications or Prescriptions considered but not ordered:: none Medication administrations:: Medication Administration History Acetaminophen (Acetaminophen 325 Mg Tablet) 650 mg PO Q6H PRN PRN Reason: PAIN SCALE 1-3 (mild Stop: 05/13/25 21:00 Acetaminophen (Acetaminophen 325 Mg Tablet) 650 mg PO Q6H PRN PRN Reason: Fever >100.4 Stop: 05/13/25 21:00 Hydrocodone Bitart/Acetaminophen (Hydrocodone/Apap 10/325 Tab) 1 tab PO Q4HR PRN PRN Reason: PAIN SCALE 7-10 (Severe Stop: 04/18/25 21:00 Apixaban (Apixaban 2.5 Mg Tablet) 5 mg PO BID [facility] Stop: 05/14/25 08:59 Aspirin (Aspirin 81 Mg Chew) 81 mg PO QDAY [facility] Stop: 05/14/25 08:59 Dextrose (Dextrose 50%-Water Inj 50 Ml Syringe) 25 ml IV Q15MIN PRN PRN Reason: BG 50-70 responsive npo pt Stop: 05/13/25 20:56 Dextrose (Dextrose 50%-Water Inj 50 Ml Syringe) 50 ml IV Q15MIN PRN PRN Reason: BG <50 OR BG <70 & pt unresponsive Stop: 05/13/25 20:56 Glucagon (Glucagon Inj 1 Mg Vial) 1 mg IM Q15MIN PRN PRN Reason: BG <70, and no IV access Ceftriaxone Sodium/Dextrose (Rocephin/D5w 1gm Iv Premix) 1 gm in 50 mls @ 100 mls/hr IV QDAY [facility] Stop: 04/20/25 20:59 Last Admin: 04/13/25 21:30 Dose: Not Given Documented By: VELASQUEZ Non-Admin Reason: See IV Spreadsheet Insulin Human Lispro (Insulin Lispro (Admelog) 1 Unit/0.01 Ml Unit) 0 unit SC [facility]; Protocol Stop: 05/13/25 20:59 Last Admin: 04/13/25 21:55 Dose: Not Given Documented By: VELASQUEZ Non-Admin Reason: Per Protocol Lidocaine (Lidocaine 5% 1 Patch) 1 patch TOP UD PRN PRN Reason: PAIN Stop: 05/13/25 20:57 Metoprolol Succinate (Metoprolol Succinate Xl 25 Mg Tabcr) 50 mg PO [facility] Stop: 05/13/25 20:59 Last Admin: 04/13/25 21:42 Dose: 50 mg Documented By: SF Metoprolol Succinate (Metoprolol Succinate Xl 25 Mg Tabcr) 100 mg PO QAM [facility] Stop: 05/14/25 08:59 Ondansetron HCl (Ondansetron Inj 2 Mg/Ml Inj 2 Ml) 4 mg IVP Q6H PRN; Protocol PRN Reason: NAUSEA OR VOMITING Stop: 05/13/25 21:00 Oxycodone/Acetaminophen (Oxycodone/Apap 5/325 Tablet) 1 tab PO Q6H PRN PRN Reason: PAIN SCALE 4-6 (Moderate Stop: 04/18/25 21:00 Pantoprazole Sodium (Pantoprazole Inj 40 Mg Vial) 40 mg IVP QDAY [facility] Stop: 05/14/25 08:59 Discontinued Medications Alprazolam (Alprazolam 0.25 Mg Tablet) 0.5 mg PO X1 ONE Stop: 04/13/25 19:37 Last Admin: 04/13/25 20:07 Dose: Not Given Documented By: PAMELA Non-Admin Reason: Patient Refused Apixaban (Apixaban 2.5 Mg Tablet) 5 mg PO X1 ONE Stop: 04/13/25 20:56 Last Admin: 04/13/25 21:46 Dose: 5 mg Documented By: VELASQUEZ Ceftriaxone Sodium/Dextrose (Rocephin/D5w 1gm Iv Premix) 1 gm in 50 mls @ 100 mls/hr IV X1 ONE Stop: 04/13/25 20:39 Last Infusion: 04/14/25 00:07 Dose: Infused Documented By: Admin: 04/13/25 21:41 Dose: 100 mls/hr Documented By: VELASQUEZ Sodium Chloride (Ns) 250 mls @ 500 mls/hr IV .Q30M ONE Stop: 04/13/25 20:39 Last Infusion: 04/14/25 00:07 Dose: Infused Documented By: Admin: 04/13/25 21:46 Dose: 500 mls/hr Documented By: VELASQUEZ Treatment from me here included: IV fluid Rocephin Patient declined Xanax. Consultations Consultation(s) initiated? (list below): Yes Consultation #1 (Physician, Specialty, Details): I discussed the case with our global category manager, Dr. King About the presentation and exam and diagnostics and treatments here. Recommended admission to hospitalist service for cardioversion. Consultation #2 (Physician, Specialty, Details): I discussed the case with our hospitalist. About the presentation and exam and diagnostics and treatments here. And need of further care in the hospital. Will accept the patient. Diagnosis Shortness of Breath Differential Diagnosis: acute exacerbation of chronic obstructive airways disease, congestive heart failure, community acquired pneumonia, asthma with exacerbation, pulmonary embolism and other (Recurrent atrial fibrillation with RVR) Most likely diagnosis given after review of the tests above:: Atrial fibrillation with RVR, UTI (urinary tract infection) Admission Indicated Admission indicated?: indicated Explain why admission is indicated or not indicated:: Atrial fibrillation with RVR, UTI (urinary tract infection) Admission Request Was there a request for admission?: Yes Admission Attestation Admission request attestation: Discussed case with Hospitalist service regarding admission. Discussed patients ED course, exam findings, labs, and radiology results. Agreed to accept the patient for admission. Disposition Plan Disposition Plan: Admit Discharge Plan Plan Patient Disposition: Admit Acute Care w/in Hospital Problem List Clinical Impression: Atrial fibrillation with RVR, UTI (urinary tract infection)
[2025-04-13 19:26] LABS: Collection Type, Urine Clean Catch
[2025-04-13 19:52] LABS: Bacteria,Urine 4+; Bilirubin,Urine Negative (Negative); Blood,Urine 1+ (Negative); Clarity,Urine Turbid (Clear/Hazy); Color,Urine Lt-Yellow (Lt Yel-Yel); Glucose, Urine Negative (Negative); Ketones,Urine Negative (Negative); Leukocyte Esterase,Urine Positive (Negative); Nitrite,Urine Positive (Negative); PH,Urine 6.0 (5.0-7.0); Protein,Urine 1+ (Neg - Trace); RBC,Urine 1 /hpf (0-3); Specific Gravity,Urine 1.023 (1.001-1.035); Squamous Epithelial Cell,Urine 4 /hpf (0-5); Urobilinogen,Urine Negative mg/dL (0.0-1.0); WBC,Urine 26 /hpf (0-5)
[2025-04-13 19:53] LABS: Culture Indicated,Urine Yes
[2025-04-13 19:56] VITALS: BP 122/85; PULSE 92; RESP 16; TEMP 36.4; O2SAT 100
[2025-04-13 20:05] LABS: D-Dimer < 250 ng/mL (<600)
--- NOTE | 2025-04-13 20:57 | ECHO_ITS ---
Transesophageal Echo Report Ht (in): 61 Wt (lb): 205 Exam Location: Echo Lab Status: Emergency Ham Sawyer: Lina Dunham Indications: Procedure Performed: BP: 133 / 74 HR: 120 Medications Versed 4 mg Fentanyl 100 FINDINGS Left Ventricle Global left ventricular systolic function is severely decreased. Indeterminate LV diastolic function due to AFIB .The ejection fraction is visually estimated at 25-30%. Right Ventricle The right ventricular systolic function is mildly decreased. Left Atrium The left atrial cavity size is moderately increased. Right Atrium The right atrial cavity size is mildly increased. Atrial Appendages The left atrial appendage appears normal with no evidence for thrombus. Atrial Septum No patent foramen ovale demonstrated by agitated saline injection. Aorta The aorta is normal by two-dimensional, color flow and Doppler interrogation. Mitral Valve The mitral valve is normal by two-dimensional, color flow and Doppler interrogation. Mild mitral regurgitation. Tricuspid Valve The tricuspid valve is normal by two-dimensional, color flow and Doppler interrogation.there is trace tricuspid valve regurgitation. Pulmonic Valve The pulmonic valve is normal by two-dimensional, color flow and Doppler interrogation. There is no significant pulmonic valve regurgitation. Vessels The pulmonary artery appears normal. The inferior vena cava pulmonary and hepatic veins appear normal. Pericardium The pericardium is normal by two-dimensional imaging. There is no significant pericardial effusion. CONCLUSIONS Indication: Symptomatic AFib/ cardioversion Medication Versed 4 mg Fentanyl 100 mcg No LA/ ARIN thrombus. Bubble study negative for PFO or ASD LV systolic function is severely decreased. Indeterminate LV diastolic function due to A-fib. EF estimated at 30-35% Normal LV and RV size. The right ventricular systolic function is mildly decreased. Mild to moderate MR and Trace TR. Systolic blunting of pulmonary veins noted. No pericardial effusion. David King (Electronically Signed) Final Date: 14 April 2025 18:26
--- NOTE | 2025-04-13 21:06 | ESHP_ITS ---
<Statement entered by Arron Calero MD - 04/14/25 02:43> I have discussed and was present for the essential components of the history, physical examination, diagnosis, and treatment plan with the resident. I agree with the patient's care as documented by the resident and amended herein by me. Arron Calero MD FACP. Documentation for date of: 04/13/25 HPI History of Present Illness History of present illness: This is 74-year-old female with PMHx AFIB with recurrent RVR, HTN, T2DM, hiatal hernia, osteoporosis, arthritis, IBS, migraine MAHMOOD, and recent TIA presenting to the ED with headache and shortness of breath. Reports worsening shortness of breath over the last few days that appears to be triggered by racing sensation in the cehst. She has a history of AFIB with recurrent RVR. She usually noticed these episodes when her heart rate goes up. She become anxious and start feeling short of breath. These symptoms occur on average once a week, sometimes more often, last minutes long but vary in duration. She follows up with Dr. King and has seen him recently and found to have RVR. States this episode has lasted longer than usual. She has a history of migraine headaches that she takes OCT analgesis for. She has had worsening headache over the last few days, believes to be related to anxiety. Currently complains of feeling anxious and palpitations but sob appears to have resolved. Headache about 4/10, non-focal, more around the temporal region bilaterally. Also complains of chronic, persistent left posterior shoulder pain, which was present on exam, not associated with movement, reproducible on exam with palpitation. Denies fever, chills, fall or head trauma, focal neurological deficits, vision changes, hearing loss, speach abnormalities, focal weakness, chest pain, cough, abdominal pain, NVDC, GI bleed, dysurea or hematurea. He has chronic urinary frequency secondary to urinary incontinence. Past Medical History: * As above. Past Surgical History: * Cholecystectomy, hiatal hernia repair, carpal tunnel. Medications: * METOPROLOL XL 100 mg a.m. daily, METOPROLOL XL 50 mg HS, ELIQUIS 5 mg BID, ASPIRIN 81 mg daily, METFORMIN 1000 mg daily, magnesium and calcium supplements daily. Allergies: * Rash adhesive tape, hives to shellfish, hives to IODINE contrast, stomach upset from CODEINE. Family History: * Significant cardiac history in her father with open heart surgery x 2, brother had a heart attack at the age of 57, mother has chronic history of angina and A-fib. 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 * Denies alcohol, tobacco, or illicit drug use. ED Course: * Afebrile, BP 125/90, HR 93, satting 98% on room air. * CBC unremarkable. Coag panel within normal limits. * CHEM panel significant for GLUCOSE 113, BNP 135. * Normal renal function, normal liver function, normal troponin, normal thyroid function. * UA was turbid with 26 WBC, 4+ bacteria, 1+ blood, 1+ protein. * EKG showed A-fib, HR 89, no acute ST changes. * Head CT was negative for acute pathology. * CXR is negative for pneumonia or pulmonary edema. Transportation Security Screener, Dr. King, was consulted who recommended admission for cardioversion in the a.m., given that she is persistently symptomatic, and appears to have worsening symptoms. Reason for admission: Symptomatic A-fib with shortness of breath, palpitation, requiring cardioversion. UTI requiring IV ANTIBIOTICS. Exam Vital Signs Temp Pulse Resp BP Pulse Ox O2 Del Method 97.6 F 92 16 122/85 H 100 Room Air 04/13/25 19:56 04/13/25 19:56 04/13/25 19:56 04/13/25 19:56 04/13/25 19:56 04/13/25 19:56 Narrative Exam GENERAL * Normal appearing famale, appears in mild distress and anxious, on room air. HEENT * NCAT.?PAMELA. Oral mucosa is moist. Patent Nares NECK * Supple, nontender, no JVD. CHEST * Irregularly irregular rhythm, normal rate, no m/g/r * CTAB, no w/r/r, symmetrical expansion. ABDOMEN * Soft, flat, nontender. No guarding/rebound tenderness/masses. * Bowel sounds presents EXTREMITIES * No edema/cyanosis.? SKIN * Warm and dry, no jaundice/rashes. * Tenderness to palpation over left posterior shoulder. No pain or limitations of motion. NEUROMUSCULAR * No lumbar or midline, no CVA, no paraspinal muscle spasm or tenderness. * Moves all 4 extremities well, with full ROM and good CSM. * THORNTON x4, CN II-XII grossly intact. * No focal neurologic deficits. PSYCHIATRY * Normal mood and affect, cooperative, no SI or HI or hallucinations. Results: Labs 04/13/25 17:01 04/13/25 17:01 Labs: Short CBC 04/13/25 Range/Units 17:01 WBC 9.1 (3.6-11.0) Thou/mm3 Hgb 14.3 (12.0-16.0) g/dL Hct 44.2 (36.0-46.0) % Plt Count 252 (140-440) Thou/mm3 BMP 04/13/25 17:01 Sodium 142 Potassium 4.4 Chloride 107 Carbon Dioxide 26.1 BUN 13 Creatinine 0.9 Glucose 113 H Calcium 9.8 Cardiac Enzymes 04/13/25 Range/Units 17:01 Troponin I < 0.002 (0.0-0.045) ng/mL Liver Function 04/13/25 Range/Units 17:01 Total Bilirubin 0.4 (0.3-1.2) mg/dL AST 21 (0-34) U/L ALT 17 (10-49) U/L Alkaline Phosphatase 88 (46-116) U/L Albumin 4.2 (3.4-4.8) gm/dL Urine 04/13/25 Range/Units 19:23 Urine Color Lt-Yellow (Lt Yel-Yel) Urine Clarity Turbid A (Clear/Hazy) Urine pH 6.0 (5.0-7.0) Ur Specific [place] 1.023 (1.001-1.035) Urine Protein 1+ A (Neg - Trace) Urine Glucose (UA) Negative (Negative) Quality Measures Quality Measures none Advance care planning discussed with:: patient Medications Home Medications and Allergies Home Medications ?Medication ?Instructions ?Recorded ?Confirmed ?Type apixaban 5 mg tablet (Eliquis) 5 mg PO BID 01/29/25 History metformin 1,000 mg tablet 100 mg PO BID 01/29/2501/29 History Allergies Allergy/AdvReac Type Severity Reaction Status Date / Time adhesive tape Allergy Intermediate RASH Verified 04/13/25 15:54 shellfish derived Allergy Intermediate Hives Verified 04/13/25 15:54 Iodinated Contrast Media Allergy Hives Verified 04/13/25 15:54 (Iodinated Contrast- Oral and IV Dye) codeine AdvReac Mild STOMACH Verified 04/13/25 15:54 UPSET Visit Medications Acetaminophen (Acetaminophen 325 Mg Tablet) 650 mg PO Q6H PRN PRN Reason: PAIN SCALE 1-3 (mild Stop: 05/13/25 21:00 Acetaminophen (Acetaminophen 325 Mg Tablet) 650 mg PO Q6H PRN PRN Reason: Fever >100.4 Stop: 05/13/25 21:00 Hydrocodone Bitart/Acetaminophen (Hydrocodone/Apap 325 Tab) 1 tab PO Q4HR PRN PRN Reason: PAIN SCALE 7-10 (Severe Stop: 04/18/25 21:00 Apixaban (Apixaban 2.5 Mg Tablet) 5 mg PO BID [facility] Stop: 05/14/25 08:59 Aspirin (Aspirin 81 Mg Chew) 81 mg PO QDAY [facility] Stop: 05/14/25 08:59 Dextrose (Dextrose 50%-Water Inj 50 Ml Syringe) 25 ml IV Q15MIN PRN PRN Reason: BG 50-70 responsive npo pt Stop: 05/13/25 20:56 Dextrose (Dextrose 50%-Water Inj 50 Ml Syringe) 50 ml IV Q15MIN PRN PRN Reason: BG <50 OR BG <70 & pt unresponsive Stop: 05/13/25 20:56 Glucagon (Glucagon Inj 1 Mg Vial) 1 mg IM Q15MIN PRN PRN Reason: BG <70, and no IV access Ceftriaxone Sodium/Dextrose (Rocephin/D5w 1gm Iv Premix) 50 mls @ 100 mls/hr IV QDAY [facility] Stop: 04/20/25 20:59 Insulin Human Lispro (Insulin Lispro (Admelog) 1 Unit/0.01 Ml Unit) 0 unit SC [facility]; Protocol Stop: 05/13/25 20:59 Lidocaine (Lidocaine 5% 1 Patch) 1 patch TOP UD PRN PRN Reason: PAIN Stop: 05/13/25 20:57 Metoprolol Succinate (Metoprolol Succinate Xl 25 Mg Tabcr) 50 mg PO HS [facility] Stop: 05/13/25 20:59 Metoprolol Succinate (Metoprolol Succinate Xl 25 Mg Tabcr) 100 mg PO QAM [facility] Stop: 05/14/25 08:59 Ondansetron HCl (Ondansetron Inj 2 Mg/Ml Inj 2 Ml) 4 mg IVP Q6H PRN; Protocol PRN Reason: NAUSEA OR VOMITING Stop: 05/13/25 21:00 Oxycodone/Acetaminophen (Oxycodone/Apap 5/325 Tablet) 1 tab PO Q6H PRN PRN Reason: PAIN SCALE 4-6 (Moderate Stop: 04/18/25 21:00 Pantoprazole Sodium (Pantoprazole Inj 40 Mg Vial) 40 mg IVP QDAY [facility] Stop: 05/14/25 08:59 Discontinued Medications Alprazolam (Alprazolam 0.25 Mg Tablet) 0.5 mg PO X1 ONE Stop: 04/13/25 19:37 Last Admin: 04/13/25 20:07 Dose: Not Given Apixaban (Apixaban 2.5 Mg Tablet) 5 mg PO X1 ONE Stop: 04/13/25 20:56 Ceftriaxone Sodium/Dextrose (Rocephin/D5w 1gm Iv Premix) 1 gm in 50 mls @ 100 mls/hr IV X1 ONE Stop: 04/13/25 20:39 Sodium Chloride (Ns) 250 mls @ 500 mls/hr IV .Q30M ONE Stop: 04/13/25 20:39 Assessment & Plan Plan This is 74-year-old female with PMHx AFIB with recurrent RVR, HTN, T2DM, hiatal hernia, osteoporosis, arthritis, IBS, migraine MAHMOOD, and recent TIA presenting to the ED with headache and shortness of breath. Admitted for symptomatic AFIB requiring cardioeversion in AM. Symptomatic A-fib Hx A-fib, recurrent RVR Presents with sob, palpitations and anxiety. She has a history of afib with recurrent RVR and her symptoms appears to be related to AFIB. She is on rate control but remains symptomatic during these episode. Admission EKG showed AFIB rate controlled, no acute ST changes. Currently feels anxious but denies chest pain and satting well on room air. Troponin negative. BNP slightly elevated but no signs of CHF exacerbation on exam. Last ECHO from 2023 was normal with EEF 60-65. Dr. King was consulted and will perform cardioeversion in the AM. ? Continue ELIQUIS BID, give tomorrow's dose at 7AM prior to cardioeversion. ? Continue home ASPIRIN 81 mg daily ? Continue METOPROLOL XL 100 mg QDAY AM, and METOPROLOL XL 50 MG HS ? Oxygen PRN ? NPO midnight ? EKG in AM ? Maintain K>4.0 and Mag>2.0 Urinary tract infection, likely GNR Urinary incontinence She has a history of urinary incontinence and has increased urinary frequency recently, but no dysuria. UA suggested UTI. Last urine culture grew pansensitive E. coli. Currently afebrile, no leukocytosis. ? Started CEFTRIAXONE daily ? Pending urine culture Migraine headaches Hx TIA She has a history of migraine headaches, managed with OTC ANALGESICS. Currently complains of headache, but not worse than usual. She had a history of TIA recently without residual symptoms. Neuroexam WNL, no focal neurologic deficits. Head CT negative for acute pathology. ? Continue home ASPIRIN daily ? TYLENOL PRN HTN Admission BP within acceptable range. ? Continue METOPROLOL as above T2DM Most recent A1c 6.2 from 09/2024. GLUCOSE within acceptable range. ? INSULIN sliding scale ? Accu-Cheks Osteoporosis IBS Outpatient management. Health maintenance Diet: Cardiac, n.p.o. midnight GI prophylaxis: PROTONIX DVT prophylaxis: SCD Antibiotics: CEFTRIAXONE CODE STATUS: Full code Disposition: Admitted for symptomatic A-fib with RVR requiring cardioversion, UTI with IV ANTIBIOTICS. Case was discussed with attending physician. Evon Oakley DO PGY II This document was transcribed using voice recognition technology. Minor inaccuracies may be present.
[2025-04-13] MEDS: cefTRIAXone/D5w 1gm IV premix 1 GM/50 ML BAG IV (21:41)
[2025-04-13 21:42] VITALS: BP 147/96; PULSE 86
[2025-04-13] MEDS: METOPROLOL SUCCINATE XL 25 MG TABCR 50 MG PO (21:42)
[2025-04-13] MEDS: APIXABAN 2.5 MG TABLET 5 MG PO (21:46)
[2025-04-13] MEDS: SODIUM CHLORIDE 0.9% 250 ML 250 ML 500 ML IV (21:46)
--- NOTE | 2025-04-13 22:53 | PD.IMCONS ---
Documented by User: David King MD 04/14/25 10:16 HPI Data of Consult Requesting Physician: Arron Calero MD Primary Care Provider: Physician No Primary/Family Consult Narrative History of present illness: Patient is my clinic patient and has history of paroxysmal atrial fibrillation. Patient has been having RVR episodes intermittently and has been having worsening anxiety with the palpitations. She was being scheduled for an outpatient DARRIAN with cardioversion for atrial fibrillation and was started on Eliquis 5 mg twice daily for anticoagulation. Unfortunately patient has not been doing well and came to the emergency department today for further evaluation. Recommend to keep the patient n.p.o. overnight and will plan to do a DARRIAN with cardioversion in the morning. Recommend to continue to give Eliquis 5 mg tonight as well as tomorrow morning at 7 AM prior to the DARRIAN and cardioversion. Full note to follow cc:: cc: Arron Calero MD Meds Home Medications and Allergies Home Medications ?Medication ?Instructions ?Recorded ?Confirmed ?Type apixaban 5 mg tablet (Eliquis) 5 mg PO BID 01/29/25 01/29/25 History metformin 1,000 mg tablet 100 mg PO BID 01/29/25 01/29/25 History Allergies Allergy/AdvReac Type Severity Reaction Status Date / Time adhesive tape Allergy Intermediate RASH Verified 04/14/25 08:53 shellfish derived Allergy Intermediate Hives Verified 04/14/25 08:53 Iodinated Contrast Media Allergy Hives Verified 04/14/25 08:53 (Iodinated Contrast- Oral and IV Dye) codeine AdvReac Mild STOMACH Verified 04/14/25 08:53 UPSET Exam Vital Signs Temp Pulse Resp BP Pulse Ox O2 Del Method 97.6 F 86 16 147/96 H 100 Room Air 04/13/25 19:56 04/13/25 21:42 04/13/25 19:56 04/13/25 21:42 04/13/25 19:56 04/13/25 19:56 Results Labs 04/14/25 04:47 04/14/25 04:47 Labs: Short CBC 04/13/25 Range/Units 17:01 WBC 9.1 (3.6-11.0) Thou/mm3 Hgb 14.3 (12.0-16.0) g/dL Hct 44.2 (36.0-46.0) % Plt Count 252 (140-440) Thou/mm3 BMP 04/13/25 17:01 Sodium 142 Potassium 4.4 Chloride 107 Carbon Dioxide 26.1 BUN 13 Creatinine 0.9 Glucose 113 H Calcium 9.8 Cardiac Enzymes 04/13/25 Range/Units 17:01 Troponin I < 0.002 (0.0-0.045) ng/mL Liver Function 04/13/25 Range/Units 17:01 Total Bilirubin 0.4 (0.3-1.2) mg/dL AST 21 (0-34) U/L ALT 17 (10-49) U/L Alkaline Phosphatase 88 (46-116) U/L Albumin 4.2 (3.4-4.8) gm/dL Urine 04/13/25 Range/Units 19:23 Urine Color Lt-Yellow (Lt Yel-Yel) Urine Clarity Turbid A (Clear/Hazy) Urine pH 6.0 (5.0-7.0) Ur Specific [place] 1.023 (1.001-1.035) Urine Protein 1+ A (Neg - Trace) Urine Glucose (UA) Negative (Negative) Documented by User: Kristen Valles DO 04/14/25 17:05 HPI Consult Narrative Reason for consult: Afib RVR and CHF exacerbation History of present illness: Conception Camilo 74F pmhx significant for atrial fibrillation/flutter, [id number] type 2 diabetes, hypertension, osteoporosis with pathological fracture, IBS, osteoarthritis and history of TIA s/p tPA (03/2024) who presents to [facility] ED on 04/14 for worsening shortness of breath as well as palpitations. Patient was recently seen in Dr. Hernandez's clinic, for the following symptoms. Patient has been having A-fib RVR episode intermittently and has been having worse anxiety with the palpitations. Patient was recently being scheduled for outpatient DARRIAN with cardioversion for atrial fibrillation and was taking Eliquis 5 mg twice daily for anticoagulation. However unfortunately patient reports not feeling well, endorses severe headache as well as dizziness, shortness of breath, extreme fatigue and left arm tightness with left fingertip tingling for the past month, prompting ED visit. States that symptoms are worsening especially shortness of breath that she is unable to complete ADLs without feeling extremely fatigued. Endorses orthopnea (sleeping propped up on her couch), PND, chest pressure, leg swelling left greater than right and dyspnea on exertion. Also complains of worsening constant dizziness, worse with standing and walking but not on head movement for the past 3 months with associated nausea and bilateral tinnitus. Dizziness has been persistent for years however has been worsening acutely lately. Patient also states that she has urinary continence, leaking from time to time which started last June. PMHx: As above Surgical Hx: Cholecystectomy 1971, complete hysterectomy , breast reduction FHx: Father has angina, open heart surgery, passed from cardiac arrest. 4 siblings without known cardiac history. Son has hypertension and diabetes. Social Hx: Never smoker, denies alcohol intake as well as recreational/illicit drug use. Caffeine intake 3 cups of coffee a day. 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 Born in [place], lives with son. Allergies: NKDA Medications: Metformin HCl 1000 mg daily, Eliquis 5 mg twice daily, metoprolol XL 100 mg BID, magnesium oxide 400 mg daily, aspirin 81 mg daily, rosuvastatin 40 mg daily Cardiology consulted for cardioversion and DARRIAN and management of A-fib RVR. Review of Systems Review of Systems Systems Reviewed: All systems reviewed, normal except as documented Meds Home Medications and Allergies Home Medications ?Medication ?Instructions ?Recorded ?Confirmed ?Type apixaban 5 mg tablet (Eliquis) 5 mg PO BID 01/29/25 01/29/25 History metformin 1,000 mg tablet 100 mg PO BID 01/29/25 01/29/25 History Allergies Allergy/AdvReac Type Severity Reaction Status Date / Time adhesive tape Allergy Intermediate RASH Verified 04/14/25 08:53 shellfish derived Allergy Intermediate Hives Verified 04/14/25 08:53 Iodinated Contrast Media Allergy Hives Verified 04/14/25 08:53 (Iodinated Contrast- Oral and IV Dye) codeine AdvReac Mild STOMACH Verified 04/14/25 08:53 UPSET Exam Vital Signs Temp Pulse Resp BP Pulse Ox O2 Del Method 97.6 F 86 16 147/96 H 100 Room Air 04/13/25 19:56 04/13/25 21:42 04/13/25 19:56 04/13/25 21:42 04/13/25 19:56 04/13/25 19:56 Narrative Exam GENERAL: AOx3, no acute distress, anxious HEENT: NC/AT, mucous membranes moist, bilateral sclera anicteric CARDIOVASCULAR: regular rate and irregular rhythm, S1/S2 present, no murmurs appreciated PULMONARY: clear to auscultation bilaterally, no rales/rhonchi/wheezes ABDOMINAL: soft, non-tender, non-distended, no rebound/guarding, bowel sounds present EXTREMITIES: trace pitting edema at hips SKIN: warm and dry, intact, no rashes NEURO: CN II-XII grossly intact, no focal deficits, alert, following commands Results Labs 04/14/25 04:47 04/14/25 04:47 Labs: Short CBC 04/13/25 Range/Units 17:01 WBC 9.1 (3.6-11.0) Thou/mm3 Hgb 14.3 (12.0-16.0) g/dL Hct 44.2 (36.0-46.0) % Plt Count 252 (140-440) Thou/mm3 BMP 04/13/25 17:01 Sodium 142 Potassium 4.4 Chloride 107 Carbon Dioxide 26.1 BUN 13 Creatinine 0.9 Glucose 113 H Calcium 9.8 Cardiac Enzymes 04/13/25 Range/Units 17:01 Troponin I < 0.002 (0.0-0.045) ng/mL Liver Function 04/13/25 Range/Units 17:01 Total Bilirubin 0.4 (0.3-1.2) mg/dL AST 21 (0-34) U/L ALT 17 (10-49) U/L Alkaline Phosphatase 88 (46-116) U/L Albumin 4.2 (3.4-4.8) gm/dL Urine 04/13/25 Range/Units 19:23 Urine Color Lt-Yellow (Lt Yel-Yel) Urine Clarity Turbid A (Clear/Hazy) Urine pH 6.0 (5.0-7.0) Ur Specific [place] 1.023 (1.001-1.035) Urine Protein 1+ A (Neg - Trace) Urine Glucose (UA) Negative (Negative) Assessment and Plan Additional Assessment & Plan Additional Plan: Conception Ton 74F pmhx significant for atrial fibrillation/flutter, [id number] type 2 diabetes, hypertension, osteoporosis with pathological fracture, IBS, osteoarthritis and history of TIA s/p tPA (03/2024) who presents to [facility] ED on 04/14 for HFrEF exacerbation and atrial fibrillation RVR. #Atrial fibrillation RVR #Atrial fibrillation, persistent #Hx of TIA s/p tPA (03/2024) Patient has a history of atrial fibrillation with RVR intermittently and is persistently in atrial fibrillation. Cardioversion and DARRIAN were scheduled outpatient however patient symptoms acutely worsened prompting current hospitalization. Patient has been endorsing palpitations, worsened with anxiety and feeling overall fatigued and unwell. Has difficulty completing ADLs due to fatigue. Admission EKG shows atrial fibrillation with a rate of 84 QTc 421. CHADSVASC 7, 11.2% stroke risk per year HASBLED 3 Plan: - Recommend to keep the patient n.p.o. overnight and will plan to do a DARRIAN with cardioversion in the morning. - Recommend to continue to give Eliquis 5 mg tonight as well as tomorrow morning at 7 AM prior to the DARRIAN and cardioversion. - Telemetry for cardiac monitoring - Keep K>4 and Mg>2 #Shortness of breath Patient does not have a history of heart failure; however endorses worsening orthopnea (sleeping propped up on her couch), PND, chest pressure, leg swelling left greater than right, dyspnea on exertion and extreme fatigue. Reports symptoms have been present for the past few months but gradually worsening until the point where she cannot perform her ADLs. BNP on admission 135. Patient is taking metoprolol XL 100 mg BID at home. 03/2024 echocardiogram showed normal LV size and function, mild LVH, estimated EF 60 to 65%. Normal RV size and function, trace MR, TR. 04/13/25 CXR shows mild enlargement cardiac contour and no lobar pneumonia or pulmonary edema Plan: - Plan for DARRAIN in AM - CTM vitals - Telemetry for cardiac monitoring #NIDDM2 Per history. Patient is taking metformin 1000 mg QD. Last A1c 6.2 in 09/16/2024. Plan: - SSI - Management per primary team #HTN Per history. At home patient is taking metoprolol XL 100 mg BID. BP at home usually 130-140/60-80. Plan: - CTM vitals - Metoprolol and Entresto as above #Urinary tract infection, likely GNR #Urinary incontinence #Migraines #Osteoporosis #OA #IBS Plan: - Management per primary team Thank you for the consultation and allowing participation of patient's care. Plan of care discussed with attending Dr. King, post secondary professional. Kristen Valles, DO PGY-1 Internal Medicine
[2025-04-14] VITALS (20 sets, daily range): BP systolic 100–176; BP diastolic 49–134; PULSE 47–121; RESP 12–24; TEMP 35.8–36.8; O2SAT 92–99
[2025-04-14] MEDS: ACETAMINOPHEN 325 MG TABLET 650 MG PO ×2 (01:03→11:24)
[2025-04-14 05:31] LABS: Basophils # (Auto) 0.1 Thou/mm3 (0.0-0.2); Basophils % (Auto) 1 % (0-2.5); Eosinophils # (Auto) 0.1 Thou/mm3 (0.0-0.5); Eosinophils % (Auto) 1 % (0-10); Hematocrit 41.3 % (36.0-46.0); Hemoglobin 13.3 g/dL (12.0-16.0); Immature Granulocytes Auto 0.03 Thou/mm3 (0.00-0.00); Lymphocytes # (Auto) 2.9 Thou/mm3 (1.0-4.8); Lymphocytes % (Auto) 32 % (10-50); Mean Corpuscular HGB Conc 32.2 g/dl (31.0-37.0); Mean Corpuscular Hemoglobin 30.0 pg (25.0-35.0); Mean Corpuscular Volume 93 fL (80-100); Monocytes # (Auto) 0.6 Thou/mm3 (0.0-0.8); Monocytes % (Auto) 7 % (0-12); Neutrophils # (Auto) 5.4 Thou/mm3 (1.8-7.7); Neutrophils % (Auto) 59 % (37-80); Nucleated Red Blood Cell # 0.00 Thou/mm3 (0.00-0.00); Nucleated Red Blood Cell % 0 /100 WBC (0); Platelet Count 222 Thou/mm3 (140-440); RDW Standard Deviation 43.3 fL (36.4-46.3); Red Blood Count 4.44 Miln/mm3 (4.00-5.20); White Blood Count 9.2 Thou/mm3 (3.6-11.0)
[2025-04-14 05:46] LABS: INR 1.1 (0.9-1.3); Partial Thromboplastin Time 27.7 Seconds (22.0-36.0); Prothrombin Time 11.9 Seconds (9.0-12.2)
[2025-04-14 06:04] LABS: Alanine Aminotransferase 15 U/L (10-49); Albumin, Serum 3.7 gm/dL (3.4-4.8); Albumin/Globulin Ratio 1.6 (1.2-2.2); Alkaline Phosphatase 79 U/L (46-116); Anion Gap 10 (7-16); Aspartate Amino Transferase 18 U/L (0-34); BUN/Creatinine Ratio 14 Ratio (12-20); Bilirubin,Total 0.4 mg/dL (0.3-1.2); Blood Urea Nitrogen 14 mg/dL (9-23); Calcium 9.0 mg/dL (8.3-10.6); Calcium (Corrected) 9.2 mg/dL (8.5-10.1); Carbon Dioxide 25.8 mMol/L (20.0-31.0); Chloride 108 mMol/L (98-107); Creatinine (Component) 1.0 mg/dL (0.6-1.3); Globulin 2.3 gm/dL (2.3-3.5); Glucose 113 mg/dL (74-106); Magnesium 1.9 mg/dL (1.6-2.6); Osmolality,Calculated 288 (275-295); Phosphorous 4.0 mg/dL (2.4-5.1); Potassium 3.8 mMol/L (3.4-5.1); Sodium 144 mMol/L (136-145); Total Protein 6.0 gm/dL (5.7-8.2); eGFR 59 See Note
[2025-04-14] MEDS: fentaNYL CIT INJ 50 mCg/ML AMP 2ML 100 MCG IVP (09:00)
[2025-04-14] MEDS: MIDAZOLAM INJ 1 MG/ML VIAL 2 ML 4 MG IVP (09:00)
[2025-04-14] MEDS: BENZOCAINE 20% (Hurricaine) SPRAY 1 DOSE TOP (09:00)
[2025-04-14] MEDS: cefTRIAXone/D5w 1gm IV premix 1 GM/50 ML BAG IV (11:07)
[2025-04-14] MEDS: ASPIRIN 81 MG CHEW PO (11:10)
[2025-04-14] MEDS: APIXABAN 2.5 MG TABLET 5 MG PO ×2 (11:10→21:13)
[2025-04-14] MEDS: POTASSIUM CHL 10 mEq IVPB 10 MEQ/100 ML BAG 100 MEQ IV ×2 (11:23→13:20)
--- NOTE | 2025-04-14 11:45 | ESPR_ITS ---
<Statement entered by Laith Soriano MD - 04/25/25 09:07> I reviewed above note and agree with findings and plans. I have also personally examined the patient with medicine team and went over assessment and plan with medical team including hospitality intern and resident physician. <Statement entered by Surjit Javier MD - 04/14/25 18:06> Overnight admission for symptomatic atrial fibrillation and status post cardioversion. Resting comfortably in bed, vital signs show heart rate of 47, BP 107/58. CBC unremarkable, CHEM panel also unremarkable. Cardiology following and appreciate recommendations. Telemetry shows sinus bradycardia with heart rate admitted to high 50s so we will hold metoprolol. Patient states that she does not feel lightheaded while at rest but does feel so when getting up from bed and walking. Encouraged to get up slowly if needs to go to the bathroom. Will continue to observe for another night and anticipate discharge within next 24 to 48 hours. ----- Note reviewed and agree with care plan as documented. Please refer to the note below for further details. Plan discussed with attending physician Dr. Christie Javier MD PGY-2 Internal Medicine Documentation for date of: 04/14/25 Subjective Subjective Interval history: No overnight events. The patient was seen and examined at bedside after her DARRIAN and cardioversion. She is resting comfortably in bed. She does mention not being able to get a complete deep breath but has no shortness of breath or chest pain. She is slightly bradycardic with a rate in the 40s. Will hold metoprolol. Exam Vital Signs Temp Pulse Resp BP Pulse Ox O2 Del Method O2 Flow Rate 96.5 F L 47 L 24 H 107/58 L 96 Room Air 2 04/14/25 11:01 04/14/25 11:09 04/14/25 11:01 04/14/25 11:09 04/14/25 11:04/14/25 11:01 04/14/25 09:30 Narrative Exam General: Awake and in no acute distress. Conversational and non-toxic appearing. Neurologic: GCS 15. Alert and oriented x3, no gross neurological deficit, and patient able to move all 4 extremities. HEENT: Normocephalic, atraumatic, mucous membranes moist. Pupils reactive to light. Heart: Bradycardic, regular rhythm, normal S1 and S2, no murmurs. Lungs: Clear to auscultation bilaterally with no wheezing or crackles. Abdomen: Soft, nondistended, nontender, positive bowel sounds. No guarding or rebound tenderness. Extremities: No edema. 2+ radial and dorsalis pedis pulses bilaterally. Skin: Warm. Dry. No rash or ecchymoses. Objective Labs 04/14/25 04:47 04/14/25 04:47 Labs: Laboratory Results - last 24 hr 04/13/25 04/13/25 04/14/25 17:01 19:23 04:47 WBC 9.1 9.2 RBC 4.77 4.44 Hgb 14.3 13.3 Hct 44.2 41.3 MCV 93 93 MCH 30.0 30.0 MCHC 32.4 32.2 RDW Std Deviation 42.9 43.3 Plt Count 252 222 D Neut % (Auto) 68 59 Lymph % (Auto) 25 32 Day % (Auto) 6 7 Eos % (Auto) 1 1 Baso % (Auto) 1 1 Neut # (Auto) 6.2 5.4 Lymph # (Auto) 2.3 2.9 Day # (Auto) 0.5 0.6 Eos # (Auto) 0.1 0.1 Baso # (Auto) 0.1 0.1 Immature Gran # (Auto) 0.03 H 0.03 H Absolute Nucleated RBC 0.00 0.00 Immature Gran % 0 0 Nucleated RBC % 0 0 PT 11.6 11.9 INR 1.1 1.1 APTT 27.3 27.7 D-Dimer < 250 Sodium 142 144 Potassium 4.4 3.8 D Chloride 107 108 H Carbon Dioxide 26.1 25.8 Anion Gap 9 10 BUN 13 14 Creatinine 0.9 1.0 Estim Creat Clear Calc Not Performed. Not Performed. eGFR > 60 59 L BUN/Creatinine Ratio 14 14 Glucose 113 H 113 H Calculated Osmolality 284 288 Calcium 9.8 9.0 Corrected Calcium 9.8 9.2 Phosphorus 4.0 Magnesium 2.1 1.9 Total Bilirubin 0.4 0.4 AST 21 18 ALT 17 15 Alkaline Phosphatase 88 79 Troponin I < 0.002 B-Natriuretic Peptide 135 H Total Protein 6.8 6.0 Albumin 4.2 3.7 D Globulin 2.6 2.3 Albumin/Globulin Ratio 1.6 1.6 TSH 1.04 Free T4 1.27 Ur Collection Type Clean Catch Urine Color Lt-Yellow Urine Clarity Turbid A Urine pH 6.0 Ur Specific [place] 1.023 Urine Protein 1+ A Urine Glucose (UA) Negative Urine Ketones Negative Urine Blood 1+ A Urine Nitrite Positive Urine Bilirubin Negative Urine Urobilinogen (Auto) Negative Ur Leukocyte Esterase Positive Urine RBC 1 Urine WBC 26 H Ur Squamous Epith Cells 4 Urine Bacteria 4+ A Ur Culture Indicated? Yes Quality Measures Quality Measures none Advance care planning discussed with:: patient Assessment & Plan Assessment Current Active Medications: Generic Name Dose Route Start Last Admin Trade Name Freq PRN Reason Stop Dose Admin Acetaminophen 650 mg 04/13/25 21:01 04/14/25 11:24 Acetaminophen 325 Mg Tablet PO 05/13/25 21:00 650 mg Q6H PRN Administration PAIN SCALE 1-3 (mild Acetaminophen 650 mg 04/13/25 21:01 Acetaminophen 325 Mg Tablet PO 05/13/25 21:00 Q6H PRN Fever >100.4 Hydrocodone Bitart/Acetaminophen 1 tab 04/13/25 21:01 Hydrocodone/Apap 10/325 Tab PO 04/18/25 21:00 Q4HR PRN PAIN SCALE 7-10 (Severe Apixaban 5 mg 04/14/25 09:00 04/14/25 11:10 Apixaban 2.5 Mg Tablet PO 05/14/25 08:59 5 mg BID DENA Administration Aspirin 81 mg 04/14/25 09:00 04/14/25 11:10 Aspirin 81 Mg Chew PO 05/14/25 08:59 81 mg QDAY DENA Administration Dextrose 25 ml 04/13/25 20:57 Dextrose 50%-Water Inj 50 Ml Syringe IV 05/13/25 20:56 Q15MIN PRN BG 50-70 responsive npo pt Dextrose 50 ml 04/13/25 20:57 Dextrose 50%-Water Inj 50 Ml Syringe IV 05/13/25 20:56 Q15MIN PRN BG <50 OR BG <70 & pt unresponsive Glucagon 1 mg 04/13/25 20:57 Glucagon Inj 1 Mg Vial IM Q15MIN PRN BG <70, and no IV access Ceftriaxone Sodium/Dextrose 1 gm in 50 mls @ 100 mls/hr 04/13/25 21:00 04/14/25 11:07 Rocephin/D5w 1gm Iv Premix IV 04/20/25 20:59 100 mls/hr QDAY DENA Administration Insulin Human Lispro 0 unit 04/13/25 21:00 04/14/25 09:08 Insulin Lispro (Admelog) 1 Unit/0.01 Ml Unit SC 05/13/25 20:59 Not Given ACHS DENA Protocol Lidocaine 1 patch 04/13/25 20:58 Lidocaine 5% 1 Patch TOP 05/13/25 20:57 UD PRN PAIN Metoprolol Succinate 50 mg 04/14/25 10:00 04/14/25 11:09 Metoprolol Succinate Xl 25 Mg Tabcr PO 05/14/25 09:59 Not Given BID DENA Ondansetron HCl 4 mg 04/13/25 21:01 Ondansetron Inj 2 Mg/Ml Inj 2 Ml IVP 05/13/25 21:00 Q6H PRN NAUSEA OR VOMITING Protocol Oxycodone/Acetaminophen 1 tab 04/13/25 21:01 Oxycodone/Apap 5/325 Tablet PO 04/18/25 21:00 Q6H PRN PAIN SCALE 4-6 (Moderate Pantoprazole Sodium 40 mg 04/14/25 09:00 04/14/25 11:08 Pantoprazole Inj 40 Mg Vial IVP 05/14/25 08:59 40 mg QDAY DENA Administration Plan Summary: This is 74-year-old female with PMHx AFIB with recurrent RVR, HTN, T2DM, hiatal hernia, osteoporosis, arthritis, IBS, migraine MAHMOOD, and recent TIA presenting to the ED with headache and shortness of breath. Admitted for symptomatic AFIB requiring cardioeversion. Cardiology on board #Symptomatic A-fib #Hx A-fib, recurrent RVR Presents with sob, palpitations and anxiety. She has a history of afib with recurrent RVR and her symptoms appears to be related to AFIB. She is on rate control but remains symptomatic during these episode. Admission EKG showed AFIB rate controlled, no acute ST changes. Currently feels anxious but denies chest pain and satting well on room air. Troponin negative. BNP slightly elevated but no signs of CHF exacerbation on exam. Last ECHO from 2023 was normal with EEF 60-65. Dr. King was consulted and will perform cardioeversion. Patient is status post DARRIAN and cardioversion, telemetry showed a sinus rhythm in the 40s and 50s. Plan: ? Continue ELIQUIS BID ? Continue home ASPIRIN 81 mg daily ? Hold METOPROLOL XL 100 mg QDAY AM, and METOPROLOL XL 50 MG HS ? Oxygen PRN to maintain saturation above 95% ? Maintain K>4.0 and Mag>2.0 #New HFrEF Per cardiology: Patient does not have a history of heart failure; however endorses worsening orthopnea (sleeping propped up on her couch), PND, chest pressure, leg swelling left greater than right, dyspnea on exertion and extreme fatigue. Reports symptoms have been present for the past few months but gradually worsening until the point where she cannot perform her ADLs. BNP on admission 135. Patient is taking metoprolol XL 100 mg BID at home. Patient's new heart failure is likely secondary to persistent atrial fibrillation that has been rate controlled however not rhythm controlled. Patient was initially controlled with metoprolol XL 100 mg twice daily however lately she has been feeling palpitations although she does not check her heart rate during those episodes. Likely persistent atrial fibrillation contributing to new heart failure as well as new heart failure exacerbating atrial fibrillation pushing patient into atrial fibrillation RVR due to fluid overload. 03/2024 echocardiogram showed normal LV size and function, mild LVH, estimated EF 60 to 65%. Normal RV size and function, trace MR, TR. 04/13/25 CXR shows mild enlargement cardiac contour and no lobar pneumonia or pulmonary edema Plan per cardiology: - F/u DARRIAN - Hold metoprolol iso low HR - Start Entresto reduced dose of 24/26 mg BID - No indication for diuresis at this time as patient does not seem to be fluid overloaded - Strict I&Os, daily weights - 1.5L fluid restriction - CT vitals - Telemetry for cardiac monitoring #Urinary tract infection, likely GNR #Urinary incontinence She has a history of urinary incontinence and has increased urinary frequency recently, but no dysuria. UA suggested UTI. Last urine culture grew pansensitive E. coli. Currently afebrile, no leukocytosis. Plan: ? Continue CEFTRIAXONE 1 g IV daily ? Pending urine culture #Migraine headaches #Hx TIA She has a history of migraine headaches, managed with OTC ANALGESICS. Currently complains of headache, but not worse than usual. She had a history of TIA recently without residual symptoms. Neuroexam WNL, no focal neurologic deficits. Head CT negative for acute pathology. Plan: ? Continue home ASPIRIN daily ? TYLENOL PRN #HTN Per history. At home patient is taking metoprolol XL 100 mg BID. BP at home usually 130-140/60-80. Plan: ? Entresto reduced dose of 24/26 mg twice daily #T2DM Most recent A1c 6.2 from 09/2024. GLUCOSE within acceptable range. Plan: ? INSULIN sliding scale ? Accu-Cheks #Osteoporosis #IBS Plan: -- Outpatient management. Health maintenance Diet: Cardiac GI prophylaxis: PROTONIX DVT prophylaxis: SCD Antibiotics: CEFTRIAXONE CODE STATUS: Full code Disposition: Patient is status post DARRIAN with cardioversion, cardiology on board, anticipate discharge in the next 24 hours. Continue management of UTI with IV ANTIBIOTICS. Patient was seen and discussed with my attending physician Dr. Soriano and my senior resident Dr. Concepcion ERICKSON PGY-2. Sebastien Amador DO PGY-1. Attending Provider Attestation/Addendum 74-year-old female with multiple comorbidities including hypertension, hyperlipidemia, type 2 diabetes mellitus and A-fib who presented with shortness of breath found to have A-fib with RVR. Cardiology was consulted and recommended admission for DARRIAN and cardioversion. As of now, heart rate appears to be controlled and patient is n.p.o. for DARRIAN and cardioversion today. Will anticipate discharge afterwards.I reviewed above note and agree with findings and plans. I have also personally examined the patient with medicine team and went over assessment and plan with medical team including hospitality intern and resident physician.
[2025-04-14] MEDS: INSULIN LISPRO (AdmeLOG) 1 UNIT/0.01 ML UNIT SC ×2 (11:50→17:18)
--- NOTE | 2025-04-14 15:17 | PC.SS ---
Patient is alert/oriented. Patient was able to verify demographics. Patient was admitted for afib. Patient is independent with ADL's. Patient resides with her son. Patient does not possess any DME. PCP: Dr. Pb Eduardo. Pharmacy: [facility] . Patient's family assists in transportation. Patient will return home. No needs at this time. alt medical decision maker: Liseth López,
--- NOTE | 2025-04-14 16:36 | ESOP_ITS ---
Procedure Direct current cardioversion for uncontrolled atrial flutter Moderate Conscious Sedation with Versed and Fentanyl Date of Procedure 04/14/25 Pre Op Diagnosis Atrial Fibrillation Indication atrial fibrillation Post Op Diagnosis Normal Sinus Rhythm restored. Procedure Description Patient was in atrial fibrillation and ventricular rate was controlled came in for elective cardioversion as patient was having significant symptoms for the Afib. Decision was made to perform cardioversion for the patient after performing a transesophageal echocardiogram. Transesophageal echocardiogram was completed today and did not show any significant LA or ARIN thrombus.? Please see DARRIAN report from today for rest of the findings.? Patient was already on anticoagulation with eliquis.. Patient was taken to the laborer car barn for the DARRIAN and cardioversion, both anterior and posterior pads were placed.? Patient was given moderate sedation and recei fab a total of 4 mg of Versed and 100 mcg of fentanyl prior to the procedure to provide him enough for sedation. A biphasic defibrillator was used.? A single 120 J synchronized shock was given and the patient converted successfully into normal sinus rhythm.? No complications during or after the procedure.? Patient is doing well.? His heart rate was stable between 50 to 70 bpm and appears to be normal sinus rhythm on the telemetry.? Recommend to perform an EKG to document normal sinus rhythm postprocedure.? Patient will be monitored in the laborer car barn for the next 1-2 hours and will be discharged home if hemodynamically stable. Will adjust his medications for atrial fibrillation as outpatient. Estimated Blood Loss 0 Specimen(s) Specimen(s): None Conclusion Successful direct current cardioversion of Atrial Fibrillation to Normal Sinus Rhythm Recommendation Continue metoprolol XL 100 mg Q Day if BP stable. Continue Eliquis 5 mg BID for anticaogulation. EKG to document NSR post procedure. No driving for 24 hours. Patient recommended to follow up in 1 week in the clinic. Surgical Staff Surgeon: David King MD
--- NOTE | 2025-04-14 16:56 | ESPR_ITS ---
Documentation for date of: 04/14/25 Subjective Subjective Interval history: Patient seen and examined at bedside post cardioversion and DARRIAN. Telemetry reviewed showing sinus rhythm for rate of 40s to 50s. Vitals and labs reviewed. Patient reports feeling very drowsy as she has been unable to sleep for the past 2 nights due to anxiety and palpitations. Currently feels tired and endorses no chest pain, no shortness of breath or palpitations. 110-120s/80s-90s. Saturating 96% room air. Potassium 3.8, creatinine 1.0, magnesium 1.9, BNP 135. Exam Vital Signs Temp Pulse Resp BP Pulse Ox O2 Del Method O2 Flow Rate 96.5 F L 47 L 24 H 107/58 L 96 Room Air 2 04/14/25 11:04/14/25 11:09 04/14/25 11:01 04/14/25 11:09 04/14/25 11:01 04/14/25 11:01 04/14/25 09:30 Narrative Exam GENERAL: AOx3, no acute distress, drowsy HEENT: NC/AT, mucous membranes moist, bilateral sclera anicteric CARDIOVASCULAR: regular rate and rhythm, S1/S2 present, no murmurs appreciated PULMONARY: distant breath sounds due to body habitus, clear to auscultation bilaterally, no rales/rhonchi/wheezes ABDOMINAL: soft, non-tender, non-distended, no rebound/guarding, bowel sounds present EXTREMITIES: trace pitting edema at hips SKIN: warm and dry, intact, no rashes NEURO: CN II-XII grossly intact, no focal deficits, alert, following commands Objective Labs 04/15/25 04:32 04/15/25 04:32 Labs: Laboratory Results - last 24 hr 04/13/25 04/13/25 04/14/25 17:01 19:23 04:47 WBC 9.1 9.2 RBC 4.77 4.44 Hgb 14.3 13.3 Hct 44.2 41.3 MCV 93 93 MCH 30.0 30.0 MCHC 32.4 32.2 RDW Std Deviation 42.9 43.3 Plt Count 252 222 D Neut % (Auto) 68 59 Lymph % (Auto) 25 32 [place] % (Auto) 6 7 Eos % (Auto) 1 1 Baso % (Auto) 1 1 Neut # (Auto) 6.2 5.4 Lymph # (Auto) 2.3 2.9 [place] # (Auto) 0.5 0.6 Eos # (Auto) 0.1 0.1 Baso # (Auto) 0.1 0.1 Immature Gran # (Auto) 0.03 H 0.03 H Absolute Nucleated RBC 0.00 0.00 Immature Gran % 0 0 Nucleated RBC % 0 0 PT 11.6 11.9 INR 1.1 1.1 APTT 27.3 27.7 D-Dimer < 250 Sodium 142 144 Potassium 4.4 3.8 D Chloride 107 108 H Carbon Dioxide 26.1 25.8 Anion Gap 9 10 BUN 13 14 Creatinine 0.9 1.0 Estim Creat Clear Calc Not Performed. Not Performed. eGFR > 60 59 L BUN/Creatinine Ratio 14 14 Glucose 113 H 113 H Calculated Osmolality 284 288 Calcium 9.8 9.0 Corrected Calcium 9.8 9.2 Phosphorus 4.0 Magnesium 2.1 1.9 Total Bilirubin 0.4 0.4 AST 21 18 ALT 17 15 Alkaline Phosphatase 88 79 Troponin I < 0.002 B-Natriuretic Peptide 135 H Total Protein 6.8 6.0 Albumin 4.2 3.7 D Globulin 2.6 2.3 Albumin/Globulin Ratio 1.6 1.6 TSH 1.04 Free T4 1.27 Ur Collection Type Clean Catch Urine Color Lt-Yellow Urine Clarity Turbid A Urine pH 6.0 Ur Specific [place] 1.023 Urine Protein 1+ A Urine Glucose (UA) Negative Urine Ketones Negative Urine Blood 1+ A Urine Nitrite Positive Urine Bilirubin Negative Urine Urobilinogen (Auto) Negative Ur Leukocyte Esterase Positive Urine RBC 1 Urine WBC 26 H Ur Squamous Epith Cells 4 Urine Bacteria 4+ A Ur Culture Indicated? Yes Quality Measures Quality Measures none Advance care planning discussed with:: patient Assessment & Plan Assessment Current Active Medications: Generic Name Dose Route Start Last Admin Trade Name Freq PRN Reason Stop Dose Admin Acetaminophen 650 mg 04/13/25 21:01 04/14/25 11:24 Acetaminophen 325 Mg Tablet PO 05/13/25 21:00 650 mg Q6H PRN Administration PAIN SCALE 1-3 (mild Acetaminophen 650 mg 04/13/25 21:01 Acetaminophen 325 Mg Tablet PO 05/13/25 21:00 Q6H PRN Fever >100.4 Hydrocodone Bitart/Acetaminophen 1 tab 04/13/25 21:01 Hydrocodone/Apap 10/325 Tab PO 04/18/25 21:00 Q4HR PRN PAIN SCALE 7-10 (Severe Apixaban 5 mg 04/14/25 09:00 04/14/25 11:10 Apixaban 2.5 Mg Tablet PO 05/14/25 08:59 5 mg BID DENA Administration Aspirin 81 mg 04/14/25 09:00 04/14/25 11:10 Aspirin 81 Mg Chew PO 05/14/25 08:59 81 mg QDAY DENA Administration Dextrose 25 ml 04/13/25 20:57 Dextrose 50%-Water Inj 50 Ml Syringe IV 05/13/25 20:56 Q15MIN PRN BG 50-70 responsive npo pt Dextrose 50 ml 04/13/25 20:57 Dextrose 50%-Water Inj 50 Ml Syringe IV 05/13/25 20:56 Q15MIN PRN BG <50 OR BG <70 & pt unresponsive Glucagon 1 mg 04/13/25 20:57 Glucagon Inj 1 Mg Vial IM Q15MIN PRN BG <70, and no IV access Ceftriaxone Sodium/Dextrose 1 gm in 50 mls @ 100 mls/hr 04/13/25 21:00 04/14/25 11:07 Rocephin/D5w 1gm Iv Premix IV 04/20/25 20:59 100 mls/hr QDAY DENA Administration Insulin Human Lispro 0 unit 04/13/25 21:00 04/14/25 11:50 Insulin Lispro (Admelog) 1 Unit/0.01 Ml Unit SC 05/13/25 20:59 2 unit ACHS DENA Administration Protocol Lidocaine 1 patch 04/13/25 20:58 Lidocaine 5% 1 Patch TOP 05/13/25 20:57 UD PRN PAIN Metoprolol Succinate 50 mg 04/14/25 10:00 04/14/25 11:09 Metoprolol Succinate Xl 25 Mg Tabcr PO 05/14/25 09:59 Not Given BID DENA Ondansetron HCl 4 mg 04/13/25 21:01 Ondansetron Inj 2 Mg/Ml Inj 2 Ml IVP 05/13/25 21:00 Q6H PRN NAUSEA OR VOMITING Protocol Oxycodone/Acetaminophen 1 tab 04/13/25 21:01 Oxycodone/Apap 5/325 Tablet PO 04/18/25 21:00 Q6H PRN PAIN SCALE 4-6 (Moderate Pantoprazole Sodium 40 mg 04/14/25 09:00 04/14/25 11:08 Pantoprazole Inj 40 Mg Vial IVP 05/14/25 08:59 40 mg QDAY DENA Administration Plan [place] 74F pmhx significant for atrial fibrillation/flutter, [id number] type 2 diabetes, hypertension, osteoporosis with pathological fracture, IBS, osteoarthritis and history of TIA s/p tPA (03/2024) who presents to [facility] ED on 04/14 for HFrEF exacerbation and atrial fibrillation RVR. #Atrial fibrillation RVR s/p successful cardioversion 04/14/25 #Atrial fibrillation, persistent #Hx of TIA s/p tPA (03/2024) Patient has a history of atrial fibrillation with RVR intermittently and is persistently in atrial fibrillation. Cardioversion and DARRIAN were scheduled outpatient however patient symptoms acutely worsened prompting current hospitalization. Patient has been endorsing palpitations, worsened with anxiety and feeling overall fatigued and unwell. Has difficulty completing ADLs due to fatigue. Admission EKG shows atrial fibrillation with a rate of 84 QTc 421. 04/14/25 patient was successfully cardioverted, now in sinus rhythm with a rate of 50-60s. CHADSVASC 7, 11.2% stroke risk per year HASBLED 3 Plan: - Given recent cardioversion, continue Eliquis 5 mg BID as patient is at high risk for stroke - Monitor for reconversion to atrial fibrillation - Continue ASA 81 mg QD - Telemetry for cardiac monitoring - Keep K>4 and Mg>2 #New HFrEF Patient does not have a history of heart failure; however endorses worsening orthopnea (sleeping propped up on her couch), PND, chest pressure, leg swelling left greater than right, dyspnea on exertion and extreme fatigue. Reports symptoms have been present for the past few months but gradually worsening until the point where she cannot perform her ADLs. BNP on admission 135. Patient is taking metoprolol XL 100 mg BID at home. Patient's new heart failure is likely secondary to persistent atrial fibrillation that has been rate controlled however not rhythm controlled. Patient was initially controlled with metoprolol XL 100 mg twice daily however lately she has been feeling palpitations although she does not check her heart rate during those episodes. Likely persistent atrial fibrillation contributing to new heart failure as well as new heart failure exacerbating atrial fibrillation pushing patient into atrial fibrillation RVR due to fluid overload. 03/2024 echocardiogram showed normal LV size and function, mild LVH, estimated EF 60 to 65%. Normal RV size and function, trace MR, TR. 04/13/25 CXR shows mild enlargement cardiac contour and no lobar pneumonia or pulmonary edema Plan: - F/u DARRIAN - Hold metoprolol iso low HR - Start Entresto reduced dose of 24/26 mg BID - No indication for diuresis at this time as patient does not seem to be fluid overloaded - Strict I&Os, daily weights - 1.5L fluid restriction - CTM vitals - Telemetry for cardiac monitoring #[id number] Per history. Patient is taking metformin 1000 mg QD. Last A1c 6.2 in 09/16/2024. Plan: - SSI - Management per primary team #HTN Per history. At home patient is taking metoprolol XL 100 mg BID. BP at home usually 130-140/60-80. Plan: - CTM vitals - Entresto as above #Urinary tract infection, likely GNR #Urinary incontinence #Migraines #Osteoporosis #OA #IBS Plan: - Management per primary team Thank you for the consultation and allowing participation of patient's care. Plan of care discussed with attending Dr. King, balloon pilot. Kristen Valles, PGY-1 Internal Medicine Attending Provider Attestation/Addendum I have personally seen and examined the patient separately on the above date of service and discussed the plan of care with the resident. I reviewed the resident Dr. Kristen Valles consultation progress note and agree with the resident findings and plan in the note above and have also edited the documentation to reflect my findings and plan. David King M.D. Interventional Cardiology
[2025-04-14] MEDS: FUROSEMIDE INJ 10 MG/ML VIAL 2 ML 20 MG IVP (21:13)
[2025-04-15] VITALS (8 sets, daily range): BP systolic 101–139; BP diastolic 67–79; PULSE 56–80; RESP 13–22; TEMP 35.9–36.7; O2SAT 93–99; BMI 39.9
[2025-04-15] MEDS: ACETAMINOPHEN 325 MG TABLET 650 MG PO ×2 (00:15→09:00)
[2025-04-15 05:55] LABS: Basophils # (Auto) 0.1 Thou/mm3 (0.0-0.2); Basophils % (Auto) 1 % (0-2.5); Eosinophils # (Auto) 0.1 Thou/mm3 (0.0-0.5); Eosinophils % (Auto) 1 % (0-10); Hematocrit 42.0 % (36.0-46.0); Hemoglobin 13.5 g/dL (12.0-16.0); Immature Granulocytes Auto 0.03 Thou/mm3 (0.00-0.00); Lymphocytes # (Auto) 2.8 Thou/mm3 (1.0-4.8); Lymphocytes % (Auto) 26 % (10-50); Mean Corpuscular HGB Conc 32.1 g/dl (31.0-37.0); Mean Corpuscular Hemoglobin 30.1 pg (25.0-35.0); Mean Corpuscular Volume 94 fL (80-100); Monocytes # (Auto) 0.7 Thou/mm3 (0.0-0.8); Monocytes % (Auto) 7 % (0-12); Neutrophils # (Auto) 7.1 Thou/mm3 (1.8-7.7); Neutrophils % (Auto) 65 % (37-80); Nucleated Red Blood Cell # 0.00 Thou/mm3 (0.00-0.00); Nucleated Red Blood Cell % 0 /100 WBC (0); Platelet Count 243 Thou/mm3 (140-440); RDW Standard Deviation 43.9 fL (36.4-46.3); Red Blood Count 4.49 Miln/mm3 (4.00-5.20); White Blood Count 10.8 Thou/mm3 (3.6-11.0)
[2025-04-15 06:35] LABS: Alanine Aminotransferase 14 U/L (10-49); Albumin, Serum 4.1 gm/dL (3.4-4.8); Albumin/Globulin Ratio 1.7 (1.2-2.2); Alkaline Phosphatase 79 U/L (46-116); Anion Gap 11 (7-16); Aspartate Amino Transferase 16 U/L (0-34); BUN/Creatinine Ratio 11 Ratio (12-20); Bilirubin,Total 0.4 mg/dL (0.3-1.2); Blood Urea Nitrogen 13 mg/dL (9-23); Calcium 9.5 mg/dL (8.3-10.6); Calcium (Corrected) 9.5 mg/dL (8.5-10.1); Carbon Dioxide 27.2 mMol/L (20.0-31.0); Chloride 104 mMol/L (98-107); Creatinine (Component) 1.2 mg/dL (0.6-1.3); Estimated Creatinine Clearance 43.5 mL/min (>60); Globulin 2.4 gm/dL (2.3-3.5); Glucose 150 mg/dL (74-106); Magnesium 2.0 mg/dL (1.6-2.6); Osmolality,Calculated 286 (275-295); Phosphorous 3.9 mg/dL (2.4-5.1); Potassium 4.4 mMol/L (3.4-5.1); Sodium 142 mMol/L (136-145); Total Protein 6.5 gm/dL (5.7-8.2); eGFR 48 See Note
[2025-04-15] MEDS: cefTRIAXone/D5w 1gm IV premix 1 GM/50 ML BAG IV (08:59)
[2025-04-15] MEDS: ASPIRIN 81 MG CHEW PO (08:59)
[2025-04-15] MEDS: APIXABAN 2.5 MG TABLET 5 MG PO ×2 (08:59→20:31)
--- NOTE | 2025-04-15 11:30 | CHAP ---
Patient was visited by the Spiritual Care Volunteer who prayed for them. (Volunteer was in the hospital from 09:30-11:30)
--- NOTE | 2025-04-15 11:31 | PC.SS ---
AEROSOL SUPERVISOR conducted bedside contact with the patient conduct initial assessment and to discuss discharge planning.? Patient confirmed demographic information.? Patient resides at home with son.? Patient is retired.? Patient utilizes a cane to assist with ambulation.? Patient does not utilize home oxygen.? Patient describes the ability to complete ADL?s independently.? Patient identified sister, Liseth Berger ; as surrogate medical decision maker.? Patient?s PCP is Dr. Hernadez.? Patient?s casino porter is Dr. Donahue.? Patient utilizes [facility] for medication services.? Plan is for the patient to return home at the time of discharge.? Family will provide transportation on behalf of the patient.? No further discharge needs identified by the patient.? No further intervention required at this time, social service liaison will be available to address any further concerns.? Next of Kin: Liseth Berger D/C Plan: Home
--- NOTE | 2025-04-15 13:07 | PD.RESPRO ---
Documentation for date of: 04/15/25 Subjective Subjective Interval history: Patient seen and examined at bedside. Telemetry. Reviewed, sinus rhythm heart rate 50 to 70s. No arrhythmias noted. Patient is feeling overall better today, endorses short period of palpitations at 3 or 4 AM this morning. Patient reports improved shortness of breath however continues to have headache not relieved by Tylenol. Headache is at the top of her head and now has migraines a sharp stabbing pain on her right pentecostal. Reports previously has been on migraine medication however would not like to be on any at this time. Potassium 4.4, BUN 13, creatinine 1.2, magnesium 2.0. Exam Vital Signs Temp Pulse Resp BP Pulse Ox O2 Del Method O2 Flow Rate 96.7 F L 59 L 22 H 138/79 H 96 Room Air 2 04/15/25 12:21 04/15/25 12:21 04/15/25 12:21 04/15/25 12:21 04/15/25 12:21 04/15/25 08:00 04/15/25 00:00 Narrative Exam GENERAL: AOx3, no acute distress, lying down comfortably in bed HEENT: NC/AT, mucous membranes moist, bilateral sclera anicteric CARDIOVASCULAR: regular rate and rhythm, S1/S2 present, no murmurs appreciated PULMONARY: distant breath sounds due to body habitus, clear to auscultation bilaterally, no rales/rhonchi/wheezes ABDOMINAL: soft, non-tender, non-distended, no rebound/guarding, bowel sounds present EXTREMITIES: trace pitting edema at hips SKIN: warm and dry, intact, no rashes NEURO: CN II-XII grossly intact, no focal deficits, alert, following commands Objective Labs 04/15/25 04:32 04/15/25 04:32 Labs: Laboratory Results - last 24 hr 04/15/25 04:32 WBC 10.8 RBC 4.49 Hgb 13.5 Hct 42.0 MCV 94 MCH 30.1 MCHC 32.1 RDW Std Deviation 43.9 Plt Count 243 Neut % (Auto) 65 Lymph % (Auto) 26 Mccormick % (Auto) 7 Eos % (Auto) 1 Baso % (Auto) 1 Neut # (Auto) 7.1 Lymph # (Auto) 2.8 Mccormick # (Auto) 0.7 Eos # (Auto) 0.1 Baso # (Auto) 0.1 Immature Gran # (Auto) 0.03 H Absolute Nucleated RBC 0.00 Immature Gran % 0 Nucleated RBC % 0 Sodium 142 Potassium 4.4 D Chloride 104 Carbon Dioxide 27.2 Anion Gap 11 BUN 13 Creatinine 1.2 Estim Creat Clear Calc 43.5 L eGFR 48 L BUN/Creatinine Ratio 11 L Glucose 150 H Calculated Osmolality 286 Calcium 9.5 Corrected Calcium 9.5 Phosphorus 3.9 Magnesium 2.0 Total Bilirubin 0.4 AST 16 ALT 14 Alkaline Phosphatase 79 Total Protein 6.5 Albumin 4.1 Globulin 2.4 Albumin/Globulin Ratio 1.7 Quality Measures Quality Measures none Advance care planning discussed with:: patient Assessment & Plan Assessment Current Active Medications: Generic Name Dose Route Start Last Admin Trade Name Freq PRN Reason Stop Dose Admin Acetaminophen 650 mg 04/13/25 21:01 04/15/25 09:00 Acetaminophen 325 Mg Tablet PO 05/13/25 21:00 650 mg Q6H PRN Administration PAIN SCALE 1-3 (mild Acetaminophen 650 mg 04/13/25 21:01 Acetaminophen 325 Mg Tablet PO 05/13/25 21:00 Q6H PRN Fever >100.4 Hydrocodone Bitart/Acetaminophen 1 tab 04/13/25 21:01 Hydrocodone/Apap 10/325 Tab PO 04/18/25 21:00 Q4HR PRN PAIN SCALE 7-10 (Severe Apixaban 5 mg 04/14/25 09:00 04/15/25 08:59 Apixaban 2.5 Mg Tablet PO 05/14/25 08:59 5 mg BID DENA Administration Aspirin 81 mg 04/14/25 09:00 04/15/25 08:59 Aspirin 81 Mg Chew PO 05/14/25 08:59 81 mg QDAY DENA Administration Dextrose 25 ml 04/13/25 20:57 Dextrose 50%-Water Inj 50 Ml Syringe IV 05/13/25 20:56 Q15MIN PRN BG 50-70 responsive npo pt Dextrose 50 ml 04/13/25 20:57 Dextrose 50%-Water Inj 50 Ml Syringe IV 05/13/25 20:56 Q15MIN PRN BG <50 OR BG <70 & pt unresponsive Glucagon 1 mg 04/13/25 20:57 Glucagon Inj 1 Mg Vial IM Q15MIN PRN BG <70, and no IV access Ceftriaxone Sodium/Dextrose 1 gm in 50 mls @ 100 mls/hr 04/13/25 21:00 04/15/25 08:59 Rocephin/D5w 1gm Iv Premix IV 04/20/25 20:59 100 mls/hr QDAY DENA Administration Insulin Human Lispro 0 unit 04/14/25 20:17 04/15/25 12:07 Insulin Lispro (Admelog) 1 Unit/0.01 Ml Unit SC 05/13/25 20:59 Not Given ACHS DENA Protocol Lidocaine 1 patch 04/13/25 20:58 Lidocaine 5% 1 Patch TOP 05/13/25 20:57 UD PRN PAIN Metoprolol Succinate 50 mg 04/14/25 10:00 04/14/25 11:09 Metoprolol Succinate Xl 25 Mg Tabcr PO 05/14/25 09:59 Not Given On Hold: 04/14/25 17:26 BID DENA Ondansetron HCl 4 mg 04/13/25 21:01 Ondansetron Inj 2 Mg/Ml Inj 2 Ml IVP 05/13/25 21:00 Q6H PRN NAUSEA OR VOMITING Protocol Oxycodone/Acetaminophen 1 tab 04/13/25 21:01 Oxycodone/Apap 5/325 Tablet PO 04/18/25 21:00 Q6H PRN PAIN SCALE 4-6 (Moderate Pantoprazole Sodium 40 mg 04/14/25 09:00 04/15/25 09:00 Pantoprazole Inj 40 Mg Vial IVP 05/14/25 08:59 40 mg QDAY DENA Administration Plan Conception Camilo [id number] pmhx significant for atrial fibrillation/flutter, [id number] type 2 diabetes, hypertension, osteoporosis with pathological fracture, IBS, osteoarthritis and history of TIA s/p tPA (03/2024) who presents to [facility] ED on 04/14 for HFrEF exacerbation and atrial fibrillation RVR. #Atrial fibrillation RVR s/p successful cardioversion 04/14/25 #Atrial fibrillation, persistent #Hx of TIA s/p tPA (03/2024) Patient has a history of atrial fibrillation with RVR intermittently and is persistently in atrial fibrillation. Cardioversion and DARRIAN were scheduled outpatient however patient symptoms acutely worsened prompting current hospitalization. Patient has been endorsing palpitations, worsened with anxiety and feeling overall fatigued and unwell. Has difficulty completing ADLs due to fatigue. Admission EKG shows atrial fibrillation with a rate of 84 QTc 421. 04/14/25 patient was successfully cardioverted, now in sinus rhythm with a rate of 50-60s. CHADSVASC 7, 11.2% stroke risk per year HASBLED 3 Plan: - Given recent cardioversion, continue Eliquis 5 mg BID as patient is at high risk for stroke - Monitor for reconversion to atrial fibrillation - Continue ASA 81 mg QD - Telemetry for cardiac monitoring - Keep K>4 and Mg>2 #New HFrEF Patient does not have a history of heart failure; however endorses worsening orthopnea (sleeping propped up on her couch), PND, chest pressure, leg swelling left greater than right, dyspnea on exertion and extreme fatigue. Reports symptoms have been present for the past few months but gradually worsening until the point where she cannot perform her ADLs. BNP on admission 135. Patient is taking metoprolol XL 100 mg BID at home. Patient's new heart failure is likely secondary to persistent atrial fibrillation that has been rate controlled however not rhythm controlled. Patient was initially controlled with metoprolol XL 100 mg twice daily however lately she has been feeling palpitations although she does not check her heart rate during those episodes. Likely persistent atrial fibrillation contributing to new heart failure as well as new heart failure exacerbating atrial fibrillation pushing patient into atrial fibrillation RVR due to fluid overload. 03/2024 echocardiogram showed normal LV size and function, mild LVH, estimated EF 60 to 65%. Normal RV size and function, trace MR, TR. 04/13/25 CXR shows mild enlargement cardiac contour and no lobar pneumonia or pulmonary edema 04/15/25 DARRIAN shows no LA/ARIN thrombus. Bubble study negative for PFO and ASD. LV systolic function is severely decreased. Indeterminate LV diastolic function due to A-fib. EF estimated at 30 to 35%. Normal LV and RV size. Right ventricular systolic function is mildly decreased. Mild to moderate MR and trace TR systolic blunting of pulmonary veins noted, no pericardial effusion. Telemetry reviewed HR in 50-70s. Plan: - Start Entresto reduced dose of 24/26 mg BID - Start metoprolol XL 50 mg QD - No indication for diuresis at this time as patient does not seem to be fluid overloaded - Strict I&Os, daily weights - 1.5L fluid restriction - CTM vitals - Telemetry for cardiac monitoring #NIDDM2 Per history. Patient is taking metformin 1000 mg QD. Last A1c 6.2 in 09/16/2024. Plan: - SSI - Management per primary team #HTN Per history. At home patient is taking metoprolol XL 100 mg BID. BP at home usually 130-140/60-80. Plan: - CTM vitals - Entresto as above #Urinary tract infection, likely GNR #Urinary incontinence #Migraines #Osteoporosis #OA #IBS Plan: - Management per primary team Thank you for the consultation and allowing participation of patient's care. Plan of care discussed with attending Dr. King, dielectric tester. Kristen Valles, DO PGY-1 Internal Medicine
[2025-04-15] MEDS: ACETAMIN/CAFF/BUTAL (Fioricet) 1 TAB PO (14:30)
[2025-04-15] MEDS: METOPROLOL SUCCINATE XL 25 MG TABCR 50 MG PO (14:31)
--- NOTE | 2025-04-15 14:34 | PC.SS ---
Rounding Note: Cardiology recommendations are pending.
[2025-04-15] MEDS: INSULIN LISPRO (AdmeLOG) 1 UNIT/0.01 ML UNIT SC (17:13)
--- NOTE | 2025-04-15 17:25 | ESPR_ITS ---
<Statement entered by Surjit Javier MD - 04/15/25 17:52> No acute overnight events. Seen and examined at bedside and patient resting comfortably in bed.With cardiology and recommended to send home with metoprolol and Entresto but given one-time dose of metoprolol in early afternoon and patient became symptomatic bradycardic. Heart rate in 50s with associated lightheadedness, palpitations, and shortness of breath. Will discontinue metoprolol and observe patient for 1 more night and anticipate discharge within next 24 to 48 hours. ----- Note reviewed and agree with care plan as documented. Please refer to the note below for further details. Plan discussed with attending physician Dr. Patricio Javier MD PGY-2 Internal Medicine Documentation for date of: 04/15/25 Subjective Subjective Interval history: Underwent DARRIAN and cardioversion yesterday tolerated the procedure well, was a little bradycardic in the 40s and 50s, heart rate back into the 60s. Was having symptomatic bradycardia with palpitations, shortness of breath, feeling lightheaded. Stopped metoprolol 50 mg p.o. daily. Exam Vital Signs Temp Pulse Resp BP Pulse Ox O2 Del Method O2 Flow Rate 97.6 F 62 17 139/78 H 97 Room Air 2 04/15/25 16:00 04/15/25 16:00 04/15/25 16:00 04/15/25 16:00 04/15/25 16:00 04/15/25 16:00 04/15/25 00:00 Narrative Exam General: Increased work of breathing. Conversational and non-toxic appearing. Neurologic: GCS 15. Alert and oriented x3, no gross neurological deficit, and patient able to move all 4 extremities. HEENT: Normocephalic, atraumatic, mucous membranes moist. Pupils reactive to light. Heart: Bradycardic, regular rhythm, normal S1 and S2, no murmurs. Lungs: Clear to auscultation bilaterally with no wheezing or crackles. Abdomen: Soft, nondistended, nontender, positive bowel sounds. No guarding or rebound tenderness. Extremities: No edema. 2+ radial and dorsalis pedis pulses bilaterally. Skin: Warm. Dry. No rash or ecchymoses. Objective Labs 04/16/25 05:14 04/16/25 05:14 Labs: Laboratory Results - last 24 hr 04/15/25 04:32 WBC 10.8 RBC 4.49 Hgb 13.5 Hct 42.0 MCV 94 MCH 30.1 MCHC 32.1 RDW Std Deviation 43.9 Plt Count 243 Neut % (Auto) 65 Lymph % (Auto) 26 Cotton % (Auto) 7 Eos % (Auto) 1 Baso % (Auto) 1 Neut # (Auto) 7.1 Lymph # (Auto) 2.8 Cotton # (Auto) 0.7 Eos # (Auto) 0.1 Baso # (Auto) 0.1 Immature Gran # (Auto) 0.03 H Absolute Nucleated RBC 0.00 Immature Gran % 0 Nucleated RBC % 0 Sodium 142 Potassium 4.4 D Chloride 104 Carbon Dioxide 27.2 Anion Gap 11 BUN 13 Creatinine 1.2 Estim Creat Clear Calc 43.5 L eGFR 48 L BUN/Creatinine Ratio 11 L Glucose 150 H Calculated Osmolality 286 Calcium 9.5 Corrected Calcium 9.5 Phosphorus 3.9 Magnesium 2.0 Total Bilirubin 0.4 AST 16 ALT 14 Alkaline Phosphatase 79 Total Protein 6.5 Albumin 4.1 Globulin 2.4 Albumin/Globulin Ratio 1.7 Quality Measures Quality Measures none Advance care planning discussed with:: patient Assessment & Plan Assessment Current Active Medications: Generic Name Dose Route Start Last Admin Trade Name Freq PRN Reason Stop Dose Admin Acetaminophen 650 mg 04/13/25 21:01 04/15/25 09:00 Acetaminophen 325 Mg Tablet PO 05/13/25 21:00 650 mg Q6H PRN Administration PAIN SCALE 1-3 (mild Acetaminophen 650 mg 04/13/25 21:01 Acetaminophen 325 Mg Tablet PO 05/13/25 21:00 Q6H PRN Fever >100.4 Hydrocodone Bitart/Acetaminophen 1 tab 04/13/25 21:01 Hydrocodone/Apap 10/325 Tab PO 04/18/25 21:00 Q4HR PRN PAIN SCALE 7-10 (Severe Apixaban 5 mg 04/14/25 09:00 04/15/25 08:59 Apixaban 2.5 Mg Tablet PO 05/14/25 08:59 5 mg BID DENA Administration Aspirin 81 mg 04/14/25 09:00 04/15/25 08:59 Aspirin 81 Mg Chew PO 05/14/25 08:59 81 mg QDAY DENA Administration Dextrose 25 ml 04/13/25 20:57 Dextrose 50%-Water Inj 50 Ml Syringe IV 05/13/25 20:56 Q15MIN PRN BG 50-70 responsive npo pt Dextrose 50 ml 04/13/25 20:57 Dextrose 50%-Water Inj 50 Ml Syringe IV 05/13/25 20:56 Q15MIN PRN BG <50 OR BG <70 & pt unresponsive Glucagon 1 mg 04/13/25 20:57 Glucagon Inj 1 Mg Vial IM Q15MIN PRN BG <70, and no IV access Ceftriaxone Sodium/Dextrose 1 gm in 50 mls @ 100 mls/hr 04/13/25 21:00 04/15/25 09:29 Rocephin/D5w 1gm Iv Premix IV 04/20/25 20:59 Infused QDAY DENA Infusion Insulin Human Lispro 0 unit 04/14/25 20:17 04/15/25 17:13 Insulin Lispro (Admelog) 1 Unit/0.01 Ml Unit SC 05/13/25 20:59 2 unit ACHS DENA Administration Protocol Lidocaine 1 patch 04/13/25 20:58 Lidocaine 5% 1 Patch TOP 05/13/25 20:57 UD PRN PAIN Metoprolol Succinate 50 mg 04/15/25 13:45 04/15/25 14:31 Metoprolol Succinate Xl 25 Mg Tabcr PO 05/15/25 13:44 50 mg QDAY DENA Administration Ondansetron HCl 4 mg 04/13/25 21:01 Ondansetron Inj 2 Mg/Ml Inj 2 Ml IVP 05/13/25 21:00 Q6H PRN NAUSEA OR VOMITING Protocol Oxycodone/Acetaminophen 1 tab 04/13/25 21:01 Oxycodone/Apap 5/325 Tablet PO 04/18/25 21:00 Q6H PRN PAIN SCALE 4-6 (Moderate Pantoprazole Sodium 40 mg 04/14/25 09:00 04/15/25 09:00 Pantoprazole Inj 40 Mg Vial IVP 05/14/25 08:59 40 mg QDAY DENA Administration Sacubitril/Valsartan 1 tab 04/15/25 21:00 Sacubitril 24 Mg/Valsartan 26 Mg Tablet PO 05/15/25 20:59 BID DENA Plan Summary: This is 74-year-old female with PMHx AFIB with recurrent RVR, HTN, T2DM, hiatal hernia, osteoporosis, arthritis, IBS, migraine MAHMOOD, and recent TIA presenting to the ED with headache and shortness of breath. Admitted for symptomatic AFIB requiring cardioeversion. Cardiology on board #Symptomatic A-fib #Hx A-fib, recurrent RVR Presents with sob, palpitations and anxiety. She has a history of afib with recurrent RVR and her symptoms appears to be related to AFIB. She is on rate control but remains symptomatic during these episode. Admission EKG showed AFIB rate controlled, no acute ST changes. Currently feels anxious but denies chest pain and satting well on room air. Troponin negative. BNP slightly elevated but no signs of CHF exacerbation on exam. Last ECHO from 2023 was normal with EEF 60-65. Dr. King was consulted and will perform cardioeversion. Patient is status post DARRIAN and cardioversion, telemetry showed a sinus rhythm in the 40s and 50s. Patient's rate went back into the 60s, received 1 dose of metoprolol XL but it caused the patient to have symptomatic bradycardia with shortness of breath and lightheadedness. Potassium and magnesium within goal parameters. Plan: ? Continue ELIQUIS BID ? Continue home ASPIRIN 81 mg daily ? Hold METOPROLOL XL 100 mg QDAY AM, and METOPROLOL XL 50 MG HS ? Oxygen PRN to maintain saturation above 95% ? Maintain K>4.0 and Mag>2.0 #New HFrEF Per cardiology: Patient does not have a history of heart failure; however endorses worsening orthopnea (sleeping propped up on her couch), PND, chest pressure, leg swelling left greater than right, dyspnea on exertion and extreme fatigue. Reports symptoms have been present for the past few months but gradually worsening until the point where she cannot perform her ADLs. BNP on admission 135. Patient is taking metoprolol XL 100 mg BID at home. Patient's new heart failure is likely secondary to persistent atrial fibrillation that has been rate controlled however not rhythm controlled. Patient was initially controlled with metoprolol XL 100 mg twice daily however lately she has been feeling palpitations although she does not check her heart rate during those episodes. Likely persistent atrial fibrillation contributing to new heart failure as well as new heart failure exacerbating atrial fibrillation pushing patient into atrial fibrillation RVR due to fluid overload. 03/2024 echocardiogram showed normal LV size and function, mild LVH, estimated EF 60 to 65%. Normal RV size and function, trace MR, TR. 04/13/25 CXR shows mild enlargement cardiac contour and no lobar pneumonia or pulmonary edema Transesophageal echo performed on 04/13/2025 showed a significantly reduced left ventricular systolic function with an ejection fraction of 30-35%. Given the patient's long standing history of A-fib, consider cardiomyopathy due to longstanding A-fib leading to impaired atrial kick and ventricular filling. This may help explain her dramatic drop in ejection fraction. Plan per cardiology: - Hold metoprolol iso low HR - Start Entresto reduced dose of 24/26 mg BID - No indication for diuresis at this time as patient does not seem to be fluid overloaded - Strict I&Os, daily weights - 1.5L fluid restriction - CTM vitals - Telemetry for cardiac monitoring #Urinary tract infection, likely GNR #Urinary incontinence She has a history of urinary incontinence and has increased urinary frequency recently, but no dysuria. UA suggested UTI. Last urine culture grew pansensitive E. coli. Currently afebrile, no leukocytosis. Plan: ? Continue CEFTRIAXONE 1 g IV daily ? Pending urine culture #Migraine headaches #Hx TIA She has a history of migraine headaches, managed with OTC ANALGESICS. Currently complains of headache, but not worse than usual. She had a history of TIA recently without residual symptoms. Neuroexam WNL, no focal neurologic deficits. Head CT negative for acute pathology. Patient was endorsing a headache in the morning and dizziness in the afternoon. Plan: ? Continue home ASPIRIN daily ? TYLENOL PRN #HTN Per history. At home patient is taking metoprolol XL 100 mg BID. BP at home usually 130-140/60-80. Plan: ? Entresto reduced dose of 24/26 mg twice daily #T2DM Most recent A1c 6.2 from 09/2024. GLUCOSE within acceptable range. Plan: ? INSULIN sliding scale ? Accu-Cheks #Osteoporosis #IBS Plan: -- Outpatient management. Health maintenance Diet: Cardiac GI prophylaxis: PROTONIX DVT prophylaxis: SCD Antibiotics: CEFTRIAXONE CODE STATUS: Full code Disposition: Patient is postop day 1 from DARRIAN with cardioversion. Cardiology is on board. Patient received a dose of metoprolol and had symptomatic bradycardia with increased work of breathing, and dizziness. Pending the patient is ready to discharge tomorrow, we will continue her current medications and consult cardiology for discharge medications and instructions. Patient was seen and discussed with my attending physician Dr. Patricio SULLIVAN and my senior resident Dr. Concepcion ERICKSON PGY-2. Sebastien Amador DO PGY-1. Attending Provider Attestation/Addendum Jennifer Mtz DO, attest that I was physically present for the puentes portions of the service and evaluated the patient with the resident and I reviewed and discussed the case with the resident and agree with the resident's findings and plans of care as documented above Patient seen and evaluated this AM. She states that she is feeling better today, but complains of headache. She reports that she frequently gets migraines and needs to sit in quiet dark room. Patient has been bradycardic and beta will had been held. 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 Patient started on entresto and was given one dose of metoprolol in the afternoon. Patient endorsed having lightheadedness and nausea. Will keep cardiac monitoring and observe patient closely. Patient does not appear fluid overloaded.
[2025-04-16] VITALS (8 sets, daily range): BP systolic 100–127; BP diastolic 58–85; PULSE 56–74; RESP 16–25; TEMP 36.1–36.8; O2SAT 95–99; BMI 39.2
[2025-04-16] MEDS: ACETAMINOPHEN 325 MG TABLET 650 MG PO (03:30)
[2025-04-16 05:49] LABS: Basophils # (Auto) 0.1 Thou/mm3 (0.0-0.2); Basophils % (Auto) 1 % (0-2.5); Eosinophils # (Auto) 0.1 Thou/mm3 (0.0-0.5); Eosinophils % (Auto) 1 % (0-10); Hematocrit 41.2 % (36.0-46.0); Hemoglobin 13.3 g/dL (12.0-16.0); Immature Granulocytes Auto 0.02 Thou/mm3 (0.00-0.00); Lymphocytes # (Auto) 2.6 Thou/mm3 (1.0-4.8); Lymphocytes % (Auto) 30 % (10-50); Mean Corpuscular HGB Conc 32.3 g/dl (31.0-37.0); Mean Corpuscular Hemoglobin 30.2 pg (25.0-35.0); Mean Corpuscular Volume 93 fL (80-100); Monocytes # (Auto) 0.7 Thou/mm3 (0.0-0.8); Monocytes % (Auto) 8 % (0-12); Neutrophils # (Auto) 5.3 Thou/mm3 (1.8-7.7); Neutrophils % (Auto) 61 % (37-80); Nucleated Red Blood Cell # 0.00 Thou/mm3 (0.00-0.00); Nucleated Red Blood Cell % 0 /100 WBC (0); Platelet Count 211 Thou/mm3 (140-440); RDW Standard Deviation 43.8 fL (36.4-46.3); Red Blood Count 4.41 Miln/mm3 (4.00-5.20); White Blood Count 8.8 Thou/mm3 (3.6-11.0)
[2025-04-16 06:19] LABS: Alanine Aminotransferase 12 U/L (10-49); Albumin, Serum 3.9 gm/dL (3.4-4.8); Albumin/Globulin Ratio 1.7 (1.2-2.2); Alkaline Phosphatase 78 U/L (46-116); Anion Gap 10 (7-16); Aspartate Amino Transferase 16 U/L (0-34); BUN/Creatinine Ratio 12 Ratio (12-20); Bilirubin,Total 0.4 mg/dL (0.3-1.2); Blood Urea Nitrogen 12 mg/dL (9-23); Calcium 9.3 mg/dL (8.3-10.6); Calcium (Corrected) 9.4 mg/dL (8.5-10.1); Carbon Dioxide 26.4 mMol/L (20.0-31.0); Chloride 105 mMol/L (98-107); Creatinine (Component) 1.0 mg/dL (0.6-1.3); Estimated Creatinine Clearance 51.8 mL/min (>60); Globulin 2.3 gm/dL (2.3-3.5); Glucose 178 mg/dL (74-106); Magnesium 1.9 mg/dL (1.6-2.6); Osmolality,Calculated 284 (275-295); Phosphorous 3.7 mg/dL (2.4-5.1); Potassium 3.9 mMol/L (3.4-5.1); Sodium 141 mMol/L (136-145); Total Protein 6.2 gm/dL (5.7-8.2); eGFR 59 See Note
[2025-04-16] MEDS: APIXABAN 2.5 MG TABLET 5 MG PO (08:10)
[2025-04-16] MEDS: cefTRIAXone/D5w 1gm IV premix 1 GM/50 ML BAG IV (08:11)
[2025-04-16] MEDS: ASPIRIN 81 MG CHEW PO (08:12)
[2025-04-16] MEDS: PANTOPRAZOLE 40 MG TABLET PO (08:13)
--- NOTE | 2025-04-16 10:58 | PD.RESPRO ---
Documentation for date of: 04/16/25 Subjective Subjective Interval history: Patient seen and examined at bedside. Telemetry reviewed showing sinus rhythm overnight heart rate high 50s to low 60s. Blood pressure 100-120/70s. Patient is feeling overall fatigued today however improved from admission. Yesterday evening, patient reports that she felt lightheadedness, dizzy with associated shortness of breath after taking metoprolol XL 50 mg. Currently, patient denies chest pain, chest pressure, palpitations, lightheadedness, dizziness or shortness of breath. Potassium 3.9, primary team repleted 20 mEq, magnesium 1.9, per primary team repleted 1 g, creatinine 1.0. Half low dose Entresto twice daily and start metoprolol XL 25 mg QD. Exam Vital Signs Temp Pulse Resp BP Pulse Ox O2 Del Method O2 Flow Rate 96.9 F 61 16 107/58 L 97 Room Air 2 04/16/25 07:44 04/16/25 07:44 04/16/25 07:44 04/16/25 07:44 04/16/25 07:44 04/16/25 07:44 04/15/25 00:00 Narrative Exam GENERAL: AOx3, no acute distress, lying down comfortably in bed HEENT: NC/AT, mucous membranes moist, bilateral sclera anicteric CARDIOVASCULAR: regular rate and rhythm, S1/S2 present, no murmurs appreciated PULMONARY: distant breath sounds due to body habitus, clear to auscultation bilaterally, no rales/rhonchi/wheezes ABDOMINAL: soft, non-tender, non-distended, no rebound/guarding, bowel sounds present EXTREMITIES: no pitting edema SKIN: warm and dry, intact, no rashes NEURO: CN II-XII grossly intact, no focal deficits, alert, following commands Objective Labs 04/16/25 05:14 04/16/25 05:14 Labs: Laboratory Results - last 24 hr 04/16/25 05:14 WBC 8.8 RBC 4.41 Hgb 13.3 Hct 41.2 MCV 93 MCH 30.2 MCHC 32.3 RDW Std Deviation 43.8 Plt Count 211 D Neut % (Auto) 61 Lymph % (Auto) 30 [place] % (Auto) 8 Eos % (Auto) 1 Baso % (Auto) 1 Neut # (Auto) 5.3 Lymph # (Auto) 2.6 [place] # (Auto) 0.7 Eos # (Auto) 0.1 Baso # (Auto) 0.1 Immature Gran # (Auto) 0.02 H Absolute Nucleated RBC 0.00 Immature Gran % 0 Nucleated RBC % 0 Sodium 141 Potassium 3.9 D Chloride 105 Carbon Dioxide 26.4 Anion Gap 10 BUN 12 Creatinine 1.0 Estim Creat Clear Calc 51.8 L eGFR 59 L BUN/Creatinine Ratio 12 Glucose 178 H Calculated Osmolality 284 Calcium 9.3 Corrected Calcium 9.4 Phosphorus 3.7 Magnesium 1.9 Total Bilirubin 0.4 AST 16 ALT 12 Alkaline Phosphatase 78 Total Protein 6.2 Albumin 3.9 Globulin 2.3 Albumin/Globulin Ratio 1.7 Quality Measures Quality Measures none Advance care planning discussed with:: patient Assessment & Plan Assessment Current Active Medications: Generic Name Dose Route Start Last Admin Trade Name Freq PRN Reason Stop Dose Admin Acetaminophen 650 mg 04/13/25 21:01 04/16/25 03:30 Acetaminophen 325 Mg Tablet PO 05/13/25 21:00 650 mg Q6H PRN Administration PAIN SCALE 1-3 (mild Acetaminophen 650 mg 04/13/25 21:01 Acetaminophen 325 Mg Tablet PO 05/13/25 21:00 Q6H PRN Fever >100.4 Apixaban 5 mg 04/14/25 09:00 04/16/25 08:10 Apixaban 2.5 Mg Tablet PO 05/14/25 08:59 5 mg BID DENA Administration Aspirin 81 mg 04/14/25 09:00 04/16/25 08:12 Aspirin 81 Mg Chew PO 05/14/25 08:59 81 mg QDAY DENA Administration Dextrose 50 ml 04/13/25 20:57 Dextrose 50%-Water Inj 50 Ml Syringe IV 05/13/25 20:56 Q15MIN PRN BG <50 OR BG <70 & pt unresponsive Glucagon 1 mg 04/13/25 20:57 Glucagon Inj 1 Mg Vial IM Q15MIN PRN BG <70, and no IV access Ceftriaxone Sodium/Dextrose 1 gm in 50 mls @ 100 mls/hr 04/13/25 21:00 04/16/25 08:11 Rocephin/D5w 1gm Iv Premix IV 04/20/25 20:59 100 mls/hr QDAY DENA Administration Insulin Human Lispro 0 unit 04/14/25 20:17 04/16/25 08:10 Insulin Lispro (Admelog) 1 Unit/0.01 Ml Unit SC 05/13/25 20:59 Not Given ACHS DENA Protocol Lidocaine 1 patch 04/13/25 20:58 Lidocaine 5% 1 Patch TOP 05/13/25 20:57 UD PRN PAIN Ondansetron HCl 4 mg 04/13/25 21:01 Ondansetron Inj 2 Mg/Ml Inj 2 Ml IVP 05/13/25 21:00 Q6H PRN NAUSEA OR VOMITING Protocol Oxycodone/Acetaminophen 1 tab 04/13/25 21:01 Oxycodone/Apap 5/325 Tablet PO 04/18/25 21:00 Q6H PRN PAIN SCALE 4-6 (Moderate Pantoprazole Sodium 40 mg 04/16/25 09:00 04/16/25 08:13 Pantoprazole 40 Mg Tablet PO 05/16/25 08:59 40 mg QDAY DENA Administration Sacubitril/Valsartan 1 tab 04/15/25 21:00 04/16/25 08:10 Sacubitril 24 Mg/Valsartan 26 Mg Tablet PO 05/15/25 20:59 1 tab BID DENA Administration Plan Conception Camilo 74F pmhx significant for atrial fibrillation/flutter, [id number] type 2 diabetes, hypertension, osteoporosis with pathological fracture, IBS, osteoarthritis and history of TIA s/p tPA (03/2024) who presents to [facility] ED on 04/14 for HFrEF exacerbation and atrial fibrillation RVR. #Atrial fibrillation RVR s/p successful cardioversion 04/14/25 #Atrial fibrillation, persistent #Hx of TIA s/p tPA (03/2024) Patient has a history of atrial fibrillation with RVR intermittently and is persistently in atrial fibrillation. Cardioversion and DARRIAN were scheduled outpatient however patient symptoms acutely worsened prompting current hospitalization. Patient has been endorsing palpitations, worsened with anxiety and feeling overall fatigued and unwell. Has difficulty completing ADLs due to fatigue. Admission EKG shows atrial fibrillation with a rate of 84 QTc 421. 04/14/25 patient was successfully cardioverted, now in sinus rhythm with a rate of 50-60s. CHADSVASC 7, 11.2% stroke risk per year HASBLED 3 Plan: - Given recent cardioversion, continue Eliquis 5 mg BID as patient is at high risk for stroke - Start metoprolol XL 25 mg QD although bradycardic and patient could not tolerate metoprolol XL 50 mg as patient requires continuous rate control and if not on rate control has higher chance of converting back to atrial fibrillation - Monitor for reconversion to atrial fibrillation - Continue ASA 81 mg QD - Telemetry for cardiac monitoring - Keep K>4 and Mg>2 #New HFrEF (EF 30-35% 04/2025), NYHA III Patient does not have a history of heart failure; however endorses worsening orthopnea (sleeping propped up on her couch), PND, chest pressure, leg swelling left greater than right, dyspnea on exertion and extreme fatigue. Reports symptoms have been present for the past few months but gradually worsening until the point where she cannot perform her ADLs. BNP on admission 135. Patient is taking metoprolol XL 100 mg BID at home. Patient's new heart failure is likely secondary to persistent atrial fibrillation that has been rate controlled however not rhythm controlled. Patient was initially controlled with metoprolol XL 100 mg twice daily however lately she has been feeling palpitations although she does not check her heart rate during those episodes. Likely persistent atrial fibrillation contributing to new heart failure as well as new heart failure exacerbating atrial fibrillation pushing patient into atrial fibrillation RVR due to fluid overload. 03/2024 echocardiogram showed normal LV size and function, mild LVH, estimated EF 60 to 65%. Normal RV size and function, trace MR, TR. 04/13/25 CXR shows mild enlargement cardiac contour and no lobar pneumonia or pulmonary edema 04/15/25 DARRIAN shows no LA/ARIN thrombus. Bubble study negative for PFO and ASD. LV systolic function is severely decreased. Indeterminate LV diastolic function due to A-fib. EF estimated at 30 to 35%. Normal LV and RV size. Right ventricular systolic function is mildly decreased. Mild to moderate MR and trace TR systolic blunting of pulmonary veins noted, no pericardial effusion. Patient unable to tolerate metoprolol XL 50 mg on 04/15/2025 with symptoms of lightheadedness, dizziness and shortness of breath with HR low 50s. Telemetry reviewed HR in high 50s-low 60s. Plan: - Start Entresto 1/2 tablet reduced dose of 24/26 mg BID - Metoprolol XL 25 mg as above - No indication for diuresis at this time as patient does not seem to be fluid overloaded. restart lasix as outpatient - Strict I&Os, daily weights - 1.5L fluid restriction - CTM vitals - Telemetry for cardiac monitoring - Keep K>4 and Mg>2 at all times - Recommend to follow-up with outpatient cardiology within 1 week for continued GDMT management #NIDDM2 Per history. Patient is taking metformin 1000 mg QD. Last A1c 6.2 in 09/16/2024. Plan: - SSI - Management per primary team #HTN Per history. At home patient is taking metoprolol XL 100 mg BID. BP at home usually 130-140/60-80. Plan: - CTM vitals - Entresto as above #Urinary tract infection, likely GNR #Urinary incontinence #Migraines #Osteoporosis #OA #IBS Plan: - Management per primary team Thank you for the consultation and allowing participation of patient's care. Plan of care discussed with attending Dr. King, matching machine operator. Kristen Valles DO PGY-1 Internal Medicine Attending Provider Attestation/Addendum I have personally seen and examined the patient separately on the above date of service and discussed the plan of care with the resident. I reviewed the resident Dr. Kristen Valles consultation progress note and agree with the resident findings and plan in the note above and have also edited the documentation to reflect my findings and plan. David King M.D. Interventional Cardiology
--- NOTE | 2025-04-16 11:23 | ESDS_ITS ---
<Statement entered by Jennifer Curry DO - 04/16/25 17:30> I, Jennifer Curry DO, attest that I was physically present for the puenets portions of the service and evaluated the patient with the resident and I reviewed and discussed the case with the resident and agree with the resident's findings and plans of care as documented above <Statement entered by Pan Dow MD - 04/16/25 14:47> Patient was examined with the team including attending physician. Note reviewed, I agree with the discharge plan as documented. - Pan Dow MD PGY 3 Disclaimer: The document may contain phonetic/typographic errors due to voice recognition software. Planned Discharge Date 04/16/25 DS: Providers Provider Date of admission: 04/13/25 21:01 Primary care physician: Physician Lissa Primary/Family Admitting Provider: Arron Calero MD Attending Provider on Admission: Laith Soriano MD Consults: 04/13/25 20:06 Consult to Cardiology Stat Comment: Consulting Provider: David King Instructions: Atrial fibrillation with RVR 04/13/25 22:22 Consult to Cardiology Routine Comment: AFIB symptomatic, requiring cardioeversion Consulting Provider: David King 04/14/25 00:56 Referral [place] Routine Comment: Attending Provider on DC: Jennifre Curry DO Discharging Provider: Sebastien Amador DO DS: Diagnosis Discharge Diagnosis (1) UTI (urinary tract infection): Status: Acute Qualifiers: Urinary tract infection type: urethritis Qualified Code(s): N34.2 - Other urethritis (2) Atrial fibrillation: Status: Acute Qualifiers: Atrial fibrillation type: unspecified chronic Qualified Code(s): I48.20 - Chronic atrial fibrillation, unspecified Problem List Completed Was Problem List Reviewed/Reconciled?: Yes Hospital Course Hospital Course Hospital course: Hospital Course: This is 74-year-old female with PMHx AFIB with recurrent RVR, HTN, T2DM, hiatal hernia, osteoporosis, arthritis, IBS, migraine MAHMOOD, and recent TIA who presented to the ED on 04/13/2025 with headache and shortness of breath. She was admitted for symptomatic AFIB requiring cardioeversion by cardiology on 04/14/2025. The patient tolerated the procedure well. She was bradycardic status post cardioversion. The day after the procedure, patient became symptomatically bradycardic with shortness of breath and dizziness. She was also found to have newly discovered HFrEF on DARRIAN prior to her cardioversion. The patient's vitals stabilized prior to discharge, she was bradycardic but not symptomatic. Her metoprolol was discontinued. She will follow-up outpatient with cardiology. The patient was treated for a UTI inpatient. Urine culture was positive for E. coli. She will be discharged on a home regimen of cephalexin. Problem List: #Symptomatic A-fib #Hx A-fib, recurrent RVR #New HFrEF #Urinary tract infection, likely GNR #Urinary incontinence #Migraine headaches #Hx TIA #Hypertension #Type 2 diabetes melitis #Osteoporosis #IBS Discharge Instructions: ? Continue taking all other home medications as prescribed ? Keep taking your museum, calcium, and multivitamin supplements ? Follow-up with PCP within 1-2 weeks of discharge ? Follow-up with superintendent transportation, Dr. King, within 1-2 weeks of discharge ? You've been started on Entresto twice per day, please take as prescribed. ? Stop taking metoprolol XL 50 mg once a day. Please follow up with Cardiology for this medication. ? Take cephalexin 250 mg four times per day for three more days for UTI ? If you do not have a PCP, you can follow-up at the [facility] (you can call [phone] to make an appointment) ? Return to ED if symptoms worsen or recur The patient was seen and discussed with my attending physician Dr. Patricio SULLIVAN and my senior resident Dr. Paloma ERICKSON PGY-3. Sebastien Amador DO PGY-1 Time Spent with Patient Time attestation: Total time spent providing and/or coordinating discharge services: Greater than 50% Time spent: Greater than 30 minutes Exam Vital Signs Temp Pulse Resp BP Pulse Ox O2 Del Method O2 Flow Rate 96.9 F 61 16 107/58 L 97 Room Air 2 04/16/25 07:44 04/16/25 07:44 04/16/25 07:44 04/16/25 07:44 04/16/25 07:44 04/16/25 07:44 04/15/25 00:00 Narrative Exam General: Conversational and non-toxic appearing. Neurologic: GCS 15. Alert and oriented x3, no gross neurological deficit, and patient able to move all 4 extremities. HEENT: Normocephalic, atraumatic, mucous membranes moist. Pupils reactive to li ght. Heart: Bradycardic, regular rhythm, normal S1 and S2, no murmurs. Lungs: Clear to auscultation bilaterally with no wheezing or crackles. Abdomen: Soft, nondistended, nontender, positive bowel sounds. No guarding or rebound tenderness. Extremities: No edema. 2+ radial and dorsalis pedis pulses bilaterally. Skin: Warm. Dry. No rash or ecchymoses. Discharge Plan Plan Patient Disposition: HOME (Self Care) Patient condition on transfer: Stable Care Plan Goals: ? Continue taking all other home medications as prescribed. ? Please take cephalexin 250 mg four times per day for three more days for UTI. ? Follow-up with PCP within 1-2 weeks of discharge. ? Follow-up with superintendent transportation, Dr. King, within 1 week of discharge. ? You are started on Metoprolol XL 25mg once a day, please take as prescribed. ? If you do not have a PCP, you can follow-up at the [facility] (you can call [phone] to make an appointment) ? Return to ED if symptoms worsen or recur Prescriptions/Referrals Prescriptions/Med Rec: New cephalexin 250 mg capsule 250 mg PO QID 3 Days Qty: 12 0RF metoprolol succinate 25 mg tablet extended release 24 hr 25 mg PO QDAY 30 Days Qty: 30 0RF Continued aspirin 81 mg capsule 81 mg PO QDAY Qty: 30 0RF Eliquis 5 mg tablet 5 mg PO BID metformin 1,000 mg tablet 100 mg PO QDAY Patient Comments: TAKE 1 TABLET BY MOUTH TWICE A DAY WITH MORNING AND EVENING MEALS magnesium oxide 400 mg magnesium tablet 400 mg PO QDAY Discontinued metoprolol succinate 100 mg tablet extended release 24 hr 100 mg PO QDAY metoprolol succinate 50 mg tablet extended release 24 hr 50 mg PO HS calcium 500 mg tablet 500 mg PO QDAY Referrals: No Primary/Family,Physician [Primary Care Provider] Patient/Caregiver Discharge Instructions Discharge Activity: activity as tolerated Education Materials: What Is Heart Failure, Heart Failure Dc Print Language: Serbian Stand Alone Forms: Stephanie Award Info., Patient Portal Info Letter, Work/Release Restrictions Discharge Order Discharge Orders: Discharge (Routine); Ordered 04/16/25 Ordered By: Pan Dow Quality Discharge Quality Measures none
--- NOTE | 2025-04-16 15:57 | PC.SS ---
Rounding note: d/c home today.
== END 2025-04-16 16:38 | disposition home or self-care (01) ==
LOC: SERX 20:09 → S2NX 04-14 05:21 → SERHOLD 04-14 14:29 → S2NX 04-14 14:29
PROVIDERS: Internal Medicine Cardiovascular Disease; Nurse Practitioner Primary Care; Admitting Provider Internal Medicine; Emergency Provider Emergency Medicine; Visit Provider Internal Medicine
PROC: (CPT 93312; principal; 2025-04-14 09:00)
DX: N34.2 Other urethritis (principal); E11.9 Type 2 diabetes mellitus without complications; I11.0 Hypertensive heart disease with heart failure; Z86.73 Personal history of transient ischemic attack (TIA), and cerebral infarction without residual deficits; M81.0 Age-related osteoporosis without current pathological fracture; K58.9 Irritable bowel syndrome, unspecified; I50.20 Unspecified systolic (congestive) heart failure; I48.19 Other persistent atrial fibrillation; B96.20 Unspecified Escherichia coli [E. coli] as the cause of diseases classified elsewhere; F41.9 Anxiety disorder, unspecified; R00.2 Palpitations; G43.909 Migraine, unspecified, not intractable, without status migrainosus; M19.90 Unspecified osteoarthritis, unspecified site
CPT/HCPCS: 92960; 36415; 70450; 71045; 80053; 81001; 83735; 83880; 84100; 84439; 84443; 84484; 85025; 85379; 85610; 85730; 87077; 87086; 87186; 87400; 93005; 93312; 96365; 96366; 96375; 96376; 99152; 99284; A4314; G0378; J0696; J1815; J1938; J2250; J2470; J3010; J3475; J3480; J7050; A9270

== ENCOUNTER 2025-07-24 10:54 | Emergency (ER) | payer MEDICARE, SELFPAY ==
--- NOTE | 2025-07-24 11:00 | EKG_ITS ---
[facility] Test Date: 2025-07-24 Pat Name: PETAR SAAVEDRA Department: Room: - Gender: Female Bolt Threader: : 1950 Requested By: Madi Gao Order Number: [id number] Reading MD: Madi Gao Measurements Intervals [place] Rate: 126 P: MT: QRS: 29 QRSD: 81 T: 4 QT: 318 QTc: 461 Interpretive Statements ATRIAL FIBRILLATION WITH RAPID VENTRICULAR RESPONSE ABNORMAL RHYTHM ECG Compared to ECG 04/13/2025 16:25:49 No significant changes /store/S0/[id number].pdf
[2025-07-24 11:02] VITALS: BP 133/82; PULSE 99; RESP 18; TEMP 36.7; O2SAT 95; BMI 42.5
--- NOTE | 2025-07-24 11:15 | PD.EDARRY ---
ED Arrhythmia Palp. RME/HPI General Chief Complaint: Arrhythmia/Palpitations Stated Complaint: HEART POUNDING, DIFFICULTY BREATHING Time Seen by Provider: 07/24/25 11:15 Arrival date/time: 07/24/25 10:54 RME / HPI RME / HPI narrative: See MDM for HPI documentation. Related Data Home Medications ?Medication ?Instructions ?Recorded ?Confirmed apixaban 5 mg tablet (Eliquis) 5 mg PO BID 01/29/25 04/14/25 metformin 1,000 mg tablet 100 mg PO QDAY 01/29/25 04/14/25 magnesium oxide 400 mg PO QDAY 04/14/25 04/14/25 Previous Rx's ?Medication ?Instructions ?Recorded aspirin 81 mg capsule 81 mg PO QDAY #30 caps 04/03/24 metoprolol succinate 25 mg 25 mg PO BID #180 tabs 07/24/25 tablet,extended release 24 hr Allergies Allergy/AdvReac Type Severity Reaction Status Date / Time adhesive tape Allergy Intermediate RASH Verified 07/24/25 10:57 shellfish derived Allergy Intermediate Hives Verified 07/24/25 10:57 Iodinated Contrast Media Allergy Hives Verified 07/24/25 10:57 (Iodinated Contrast- Oral and IV Dye) codeine AdvReac Mild STOMACH Verified 07/24/25 10:57 UPSET Review of Systems Review of Systems Systems Reviewed: All systems reviewed, normal except as documented ED Exam Narrative Physical exam: See MDM for physical exam documentation. Course Quality Measures none Orders Category Date Time Status EKG (ED ONLY) *Do not use* NOW Care 07/24/25 11:00 Completed EKG (ED Only) Stat Exams 07/24/25 11:00 Draft Vital Signs Vital signs: Vital Signs Temperature 98.0 F 07/24/25 11:02 Pulse Rate 99 07/24/25 11:02 Respiratory Rate 18 07/24/25 11:02 Blood Pressure 133/82 H 07/24/25 11:02 Pulse Oximetry (%) 95 07/24/25 11:02 Oxygen Delivery Method Room Air 07/24/25 11:02 Arrhythmia/Palpitations MDM Narrative [facility] Narrative:: This section includes all my notes and documentations, including HPI, PE, and ED course. Madi Castaneda MD HPI: 74-year-old female here with several hour history of palpitations and shortness of breath and headache. Has atrial fibrillation. No other complaints. ROS: All negative except as documented in HPI. Physical Exam: General: Alert and oriented. No acute distress when remaining still. Eyes: Conjunctivae and lids clear. ENT: No nasal congestion. Neck: Supple. Heart: Irregularly irregular (126 bpm). Lungs: No respiratory distress. Good air movement. No rhonchi, wheezing, rales. Abdomen: Soft and nontender. Skin: Warm and dry. Neuro: Alert and oriented X 3. I reviewed all diagnostic test results: My interpretation of the EKG is atrial fibrillation with RVR. My interpretation of the chest x-ray is NAD. My review of the head CT report is NAD. Blood tests and urine tests unremarkaable. At this point, diagnoses include: Atrial fibrillation with RVR. Treatment here included: Cardizem 20 mg IV Oral metoprolol 25 mg Two Tylenol #3 Significant improvement noted. Recommended outpatient care. Based on my best medical judgment, made decision no further evaluation or treatment indicated at this time. Patient understands and agrees to the discharge instructions customized and printed, see below. Discharge instructions from Dr. Castaneda: 1. After extensive evaluation, there is no life-threatening condition. Such as heart attack or pulmonary embolism (blood clots in your lungs) or pneumothorax (collapsed lung). 2. You were treated for persistent rapid heart rate from your atrial fibrillation. 3. Take metoprolol 25 mg twice daily, until cleared by your cafeteria or lunchroom checker. You will live longer with slower heart rate. 4. See your cafeteria or lunchroom checker this coming week for recheck and further care. 5. Seek immediate medical care with worsening or with any concerns. Madi Castaneda MD Patient data External records reviewed:: [facility] previous records Clinical information provided by:: patient Social determinants that could affect healthcare access:: none Patient has the following chronic illnesses:: Atrial fibrillation How is presenting disease/condition affected by chronic disease/condition?: exacerbated by Evaluation data The following diagnostics were reviewed and interpreted by me:: EKG tracing(s) (My interpretation of the EKG is: Atrial fibrillation with RVR (126 bpm) with nonspecific ST-T changes. Madi Castaneda MD) Lab and/or radiology exams considered but not ordered:: none Interpretation Summary: I reviewed all diagnostic test results: My interpretation of the EKG is atrial fibrillation with RVR. My interpretation of the chest x-ray is NAD. My review of the head CT report is NAD. Blood tests and urine tests unremarkaable. Medications / Prescriptions Medications or Prescriptions considered but not ordered:: none Medication administrations:: Treatment here included: Cardizem 20 mg IV Oral metoprolol 25 mg Two Tylenol #3 Consultations Consultation(s) initiated? (list below): No Diagnosis Differential diagnosis arrhythmia/palpitations: palpitations, anxiety, sinus tachycardia, artial fibrillation, artial flutter, ventricular premature beats, supraventricular tachycardia, ventricular tachycardia and WPW Most likely diagnosis given after review of the tests above:: Atrial fibrillation with RVR Admission Indicated Admission indicated?: not indicated Explain why admission is indicated or not indicated:: With significant improvement and no condition needing emergent intervention, there was no indication for admission. Admission Request Was there a request for admission?: No Disposition Plan Disposition Plan: Discharge Discharge Attestation Discharge Attestation: The patient and all family members were given an opportunity to ask questions and understood the discharge instructions. Discharge instructions specifically effects, indications for sooner follow up or return to the emergency department, and the expected course of current diagnosis. Patient condition: Stable Discharge Plan Plan Patient Disposition: HOME (Self Care) Prescriptions/Referrals Prescriptions/Med Rec: New metoprolol succinate 25 mg tablet extended release 24 hr 25 mg PO BID Qty: 180 0RF No Action aspirin 81 mg capsule 81 mg PO QDAY Qty: 30 0RF Eliquis 5 mg tablet 5 mg PO BID metformin 1,000 mg tablet 100 mg PO QDAY Patient Comments: TAKE 1 TABLET BY MOUTH TWICE A DAY WITH MORNING AND EVENING MEALS magnesium oxide 400 mg magnesium tablet 400 mg PO QDAY Referrals: Moon Hernadez MD [Primary Care Provider, Family Practice] - In 1 week Problem List Clinical Impression: Atrial fibrillation with RVR Patient/Caregiver Discharge Instructions Discharge Activity: activity as tolerated Education Materials: ED Atrial Fibrillation Additional Instructions: Discharge instructions from Dr. Castaneda: 1. After extensive evaluation, there is no life-threatening condition. Such as heart attack or pulmonary embolism (blood clots in your lungs) or pneumothorax (collapsed lung). 2. You were treated for persistent rapid heart rate from your atrial fibrillation. 3. Take metoprolol 25 mg twice daily, until cleared by your cafeteria or lunchroom checker. You will live longer with slower heart rate. 4. See your cafeteria or lunchroom checker this coming week for recheck and further care. 5. Seek immediate medical care with worsening or with any concerns. Print Language: Andorran Stand Alone Forms: Stephanie Award Info., Patient Portal Info Letter
--- NOTE | 2025-07-24 11:18 | XR_ITS ---
Examination: CT brain head without contrast. 2-D sagittal coronal reconstructions Date and time of exam: July 24, 2025, 1223 hours, comparison April 13, 2025 INDICATIONS: Severe headache today CTDI: vol (mGy): 54.7 DLP: (mGycm): 1085 Technique: Multiple CT axial sections of the brain have been obtained, 5 mm slice thickness. Contrast has not been administered. 2-D sagittal, coronal reconstructions have been obtained Low dose protocols were performed. One or more of the following dose reduction techniques were used; automated exposure control, adjustment of the mA and/or KV according to patient size, use of iterative reconstruction technique. Findings: No significant ventricular enlargement. 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 No mass effect or midline shift Basal cisterns are not remarkable. Fourth ventricle is midline. Cranial vault intact. Impression: Negative for acute hemorrhage, mass effect or midline shift Advise clinical correlation and follow-up accordingly
--- NOTE | 2025-07-24 11:18 | XR_ITS ---
EXAMINATION: AP chest single view TECHNIQUE: AP portable upright chest single view Date and time: July 24, 2025, 11:47 a.m., comparison 04/13/2025. INDICATIONS: Shortness of breath today. FINDINGS: Mild enlargement cardiac contour. No tarun lobar pneumonia, no pulmonary edema Prominent osteopenia IMPRESSION: No pneumonia or pulmonary edema
[2025-07-24 11:50] VITALS: BP 130/87; PULSE 115
[2025-07-24] MEDS: DILTIAZEM INJ 5 MG/ML VIAL 5 ML 20 MG IV (11:50)
[2025-07-24 11:57] LABS: Basophils # (Auto) 0.1 Thou/mm3 (0.0-0.2); Basophils % (Auto) 1 % (0-2.5); Eosinophils # (Auto) 0.1 Thou/mm3 (0.0-0.5); Eosinophils % (Auto) 1 % (0-10); Hematocrit 47.8 % (36.0-46.0); Hemoglobin 15.7 g/dL (12.0-16.0); Immature Granulocytes Auto 0.02 Thou/mm3 (0.00-0.00); Lymphocytes # (Auto) 2.2 Thou/mm3 (1.0-4.8); Lymphocytes % (Auto) 27 % (10-50); Mean Corpuscular HGB Conc 32.8 g/dl (31.0-37.0); Mean Corpuscular Hemoglobin 30.4 pg (25.0-35.0); Mean Corpuscular Volume 93 fL (80-100); Monocytes # (Auto) 0.6 Thou/mm3 (0.0-0.8); Monocytes % (Auto) 7 % (0-12); Neutrophils # (Auto) 5.1 Thou/mm3 (1.8-7.7); Neutrophils % (Auto) 64 % (37-80); Nucleated Red Blood Cell # 0.00 Thou/mm3 (0.00-0.00); Nucleated Red Blood Cell % 0 /100 WBC (0); Platelet Count 280 Thou/mm3 (140-440); RDW Standard Deviation 43.2 fL (36.4-46.3); Red Blood Count 5.17 Miln/mm3 (4.00-5.20); White Blood Count 8.0 Thou/mm3 (3.6-11.0)
[2025-07-24 12:39] LABS: D-Dimer 454 ng/mL (<600)
[2025-07-24 12:48] LABS: Glucose Estimated Average 143 mg/dL (80-131); Hemoglobin A1C 6.6 % Hgb (4.8-6.0)
[2025-07-24 12:50] LABS: Alanine Aminotransferase 14 U/L (10-49); Albumin, Serum 4.5 gm/dL (3.4-4.8); Albumin/Globulin Ratio 1.6 (1.2-2.2); Alkaline Phosphatase 97 U/L (46-116); Anion Gap 12 (7-16); Aspartate Amino Transferase 19 U/L (0-34); BUN/Creatinine Ratio 15 Ratio (12-20); Bilirubin,Direct 0.1 mg/dL (0.0-0.3); Bilirubin,Total 0.4 mg/dL (0.3-1.2); Blood Urea Nitrogen 16 mg/dL (9-23); Calcium 9.5 mg/dL (8.3-10.6); Calcium (Corrected) 9.5 mg/dL (8.5-10.1); Carbon Dioxide 24.5 mMol/L (20.0-31.0); Chloride 107 mMol/L (98-107); Creatinine (Component) 1.1 mg/dL (0.6-1.3); Estimated Creatinine Clearance 49.2 mL/min (>60); Globulin 2.8 gm/dL (2.3-3.5); Glucose 132 mg/dL (74-106); Magnesium 1.6 mg/dL (1.6-2.6); Osmolality,Calculated 288 (275-295); Potassium 4.2 mMol/L (3.4-5.1); Sodium 143 mMol/L (136-145); Thyroid Stimulating Hormone 2.18 uIU/mL (0.55-4.78); Total Protein 7.3 gm/dL (5.7-8.2); Troponin I < 0.020 ng/mL (0.0-0.045); eGFR 53 See Note
[2025-07-24] MEDS: ACETAMINOPHEN 325 MG TABLET 650 MG PO (12:52)
[2025-07-24] MEDS: SODIUM CHLORIDE 0.9% 1000 ML 1,000 ML 999 ML IV (12:52)
[2025-07-24 13:28] VITALS: BP 130/88; PULSE 72
[2025-07-24] MEDS: METOPROLOL TARTRATE 25 MG TABLET PO (13:28)
[2025-07-24 13:48] VITALS: BP 124/94; PULSE 73; RESP 15; TEMP 35.9; O2SAT 97
[2025-07-24 14:17] LABS: B-Type Natriuretic Peptide 118 pg/mL (0-100)
[2025-07-24 14:50] LABS: Collection Type, Urine Clean Catch
[2025-07-24 15:00] LABS: Bacteria,Urine 1+; Bilirubin,Urine Negative (Negative); Blood,Urine Trace (Negative); Clarity,Urine Turbid (Clear/Hazy); Color,Urine Yellow (Lt Yel-Yel); Culture Indicated,Urine Contaminated; Glucose, Urine Negative (Negative); Hyaline Casts,Urine < 1 /hpf (0-1); Ketones,Urine Negative (Negative); Leukocyte Esterase,Urine Positive (Negative); Nitrite,Urine Positive (Negative); PH,Urine 5.5 (5.0-7.0); Protein,Urine Negative (Neg - Trace); RBC,Urine 6 /hpf (0-3); Specific Gravity,Urine 1.016 (1.001-1.035); Squamous Epithelial Cell,Urine 25 /hpf (0-5); Urobilinogen,Urine Negative mg/dL (0.0-1.0); WBC,Urine 42 /hpf (0-5)
[2025-07-24 16:00] VITALS: BP 108/92; PULSE 70; RESP 16; TEMP 36.4; O2SAT 98
== END 2025-07-24 16:10 | disposition home or self-care (01) ==
PROVIDERS: Emergency Provider Emergency Medicine; PCP Family Medicine
DX: I48.91 Unspecified atrial fibrillation (principal); R51.9 Headache, unspecified; R06.02 Shortness of breath; Z79.01 Long term (current) use of anticoagulants
CPT/HCPCS: 36415; 70450; 71045; 80053; 81001; 82248; 83036; 83735; 83880; 84443; 84484; 85025; 85379; 93005; 96360; 99284; J3490; J7030; A9270